=== PATIENT | female | born 1955 | race Caucasian/White ===

== ENCOUNTER 2024-09-25 08:02 | Outpatient (REF) | payer MEDICARE, OTHER, SELFPAY ==
--- OUTSIDE RECORDS SUMMARY | 2024-09-28 08:13 | XMS_ITS | Patient Health Record ---
Author Organization [facility] [place] Address [address] [place] [address] Care Team Providers Care Art Glass Setter Name Role Phone Jeffrey Penny MD Primary Care Provider Brody Agee Unavailable [phone] Allergies Allergen (clinical drug ingredient) Drug/Non Drug [...] A DAY Oral for 90 Active MegaRed [place]-3 Krill Oil 500 MG Orally Active Multi-Vitamin [...] Status Risk Notes Problem Acquired hallux valgus (68091722) Hallux valgus (acquired), left foot (M20.12) Active confirmed Problem Localized, primary osteoarthritis of the ankle and/or foot (279996438) Primary osteoarthrit is, right ankle and foot (M19.071) Active confirmed Problem Localized, primary osteoarthritis of the ankle and/or foot (169871675) Primary osteoarthrit is, left ankle and foot (M19.072) Active confirmed Problem Acquired hallux valgus (24313810) Hallux valgus (acquired), right foot (M20.11) Active [...] Insured Coverage Start Date Coverage End Date [facility] [address] [place] [address] [id number] Puja Desouza Self - patient is the insured [facility] Office of Community Care [address] [address] [place] [address] [phone] [id number] Sammy Desouza Sr Spouse - patient is the spouse of the insured Medical (General) History Medical History History ICD Code Arthritis Back,Hip,and Knee pain High blood pressure Reflux Measles Chicken pox Surgical History Surgery Date(Month/Year) tonsillectomy 1973 polypectomy 1981 hysterectomy 1996 finger surgery, reattached 1998
--- OUTSIDE RECORDS SUMMARY | 2024-09-28 08:13 | XMS_ITS | Data Portability ---
Author Organization [place] [facility] [place] Address [address] [place] [address] Assessment Encounter Date Assessment Date Assessment LastModified [...] with right total hip arthroplasty using the [place] hip replacement system. However, it is possible [...] view 025 07/31/19 25 [email or web address] [facility], [address], [place], [address], 5 14:48:04 XR, knee, 4 or more view 025 07/31/19 25 [email or web address] [facility], [address], [place], [address], 5 14:48:04 Medication Orders None record ed. [...] Time Osteoarthri tis of right hip joint [id number] 07 Active 2024 Yaron Cintron MD [address] [facility] [address], [place], [place], [address] , [place] [facility], P 14:20:45 Problem Notes None recorded. Procedures [...] Name and Address Organization Details Recorded Time 26410 Substance with sulfonami de structure and antibacte rial mechanism of action (substanc e) medicatio n Not available Not available Not available 07/31/2024 76559 8003 SNOMED Nubia Bond [facility], [facility], P 13:57:38 22703 Product containin g penicilli n (product) medicatio n Not available Not available Not available 07/31/2024 89817 8001 SNOMED Nubia Bond [facility], [facility], P 13:57:43 55410 cephalexi n medicatio n Not available Not available Not available 07/31/2024 2231 RxNorm Nubia Bond [facility], [facility], P 14:01:06 98059 Keflex medicatio n Not available Not available Not available 07/31/2024 45779 7 RxNorm Nubia mcdaniel, [place] - [facility], P 5 14:01:15 Medications Name Sig Start [...] propionate 50 mcg/actuati on nasal spray,suspe nsion [place] 1 spray every day by intranasa l [...] Updated DateTime 07/31/2024 152.4 cm 34.4 kg/m2 52474.[address] [place] [facility], 07/31/2024 13:58:02 Social History None recorded. Functional [...] SNOMED-CT Code Diagnosis ICD10 Code Diagnosis Note [id number] MD CLIFFORD Souza [address] [facility] [address] [place] [address] 07/31/2024 13:46:26 07/31/2024 14:25:06 Hip pain 59656395 M25.551 Pain of ri ght knee region 4445206975 65817 M25.561 Osteoarthr itis of right hip joint 3546755037 44259 M16.11 Health Concerns Section Related Observation LastModified by Organization Detai ls LastModified Time None Recorded Concern Status LastModified by Organization Details LastModified Time None Recorded Advance Directives Directive None Recorded Payers Encounter Date Sequence Insurance Name Policy Number Policy Tsang Covered Member ID Tsang Member ID Guarantor Name 07/31/2024 2 DAVID ([facility]) Puja Desouza [id number] Puja Desouza 07/31/2024 1 MEDICARE B-[place]: [facility] [employer] Puja Desouza [id number] Puja Desouza OBGyn Episode No OBEpisode recorded.
== END 2024-09-25 08:03 | disposition home or self-care (01) ==
LOC: HO.HOSX 08:02
PROVIDERS: Visit Provider Physician Assistant
DX: M25.551 Pain in right hip (principal); M17.11 Unilateral primary osteoarthritis, right knee
CPT/HCPCS: 99202

== ENCOUNTER 2024-09-25 10:34 | Outpatient (AMB) | payer MEDICARE, OTHER, SELFPAY ==
--- NOTE | 2024-09-25 11:14 | MHC.OFFVIS ---
Vital Signs 09/25/24 11:21 Height 5 ft Weight 170 lb BMI 33.2 Handedness Right Intake Visit Reasons: New Pt - Right hip pain Intake Note: Puja is a 69 year old female who presents today with a cane as a new patient for a evaluation of her right hip pain. MRI done on 07/04/24 at [place]. About a year and a half ago she slipped on a piece of paper. No hx of Previous Treatment. Patient reports ongoing pain for about 9 months. Her pain is near the glutes and at time her pain moves to her groin. She mentions that her pain is worse when she is sitting, walking and laying down. Patient has tried naproxen with no relief. Allergies cephaeline Allergy (Verified 09/25/24 11:22) Swelling Penicillins Allergy (Verified 09/25/24 11:22) Swelling Sulfa (Sulfonamide Antibiotics) Allergy (Verified 09/25/24 11:22) Swelling [facility] HPI New Pt - Right hip pain: Details: Ms. Desouza is a 69-year-old female who presents the office today for evaluation of right hip pain. She reports that she has had ongoing pain for the past 9 months. She is concerned with her inability to internally and externally rotate. While doing this motion she experiences groin and glute pain and is limited. She has tried and failed naproxen with no relief. She is interested in moving forward with a right total hip arthroplasty. [facility] Social History (Updated 09/25/24 @ 11:25 by Sam Hansen) Alcohol intake: never Patient Tobacco Use Status: Never used Tobacco Current occupational status: retired Current occupation: right hand dominant Review of Systems Const All systems reviewed & are unremarkable except as noted in HPI and below Physical Exam Vital Signs: BMI result Body Mass Index 33.2 Const General: cooperative, healthy appearing and no acute distress Resp Effort & Inspection: normal respiratory effort and able to speak in complete sentences Cardio Rate: regular rate Peripheral pulses: Peripheral pulses 2+ throughout Skin Lesions: no lesions Rashes: no rashes Extrem Other: Right hip: Limited hip range of motion with internal and external rotation which reproduces glute and groin pain. No tenderness to palpation over the greater trochanteric bursa. Able to perform straight leg raise. NVI. Assessment & Plan Assessment & Plan (1) Osteoarthritis of right hip: Code(s): M16.11 - Unilateral primary osteoarthritis, right hip Category: Medical Plan Ms. Desouza is a 69-year-old female who presents the office today for evaluation of right hip pain. She reports that she has had ongoing pain for the past 9 months. She is concerned with her inability to internally and externally rotate. While doing this motion she experiences groin and glute pain and is limited. She has tried and failed naproxen with no relief. She is interested in moving forward with a right total hip arthroplasty. While in the office today, we discussed the role of total hip arthroplasty. She is interested in moving forward with the process. A follow-up appointment will be made with Dr. Rodriguez to meet the patient and discuss in more detail. Our nurse navigator was also available to meet with the patient while in the office today. X-rays of the right hip and pelvis were chronic to the office I the patient on a disc which were uploaded into the PACS syste. The images were reviewed by me, Lu Mercado PA-C, revealed severe right hip osteoarthritis. Orders: Orders XR hip RT min 2V Today M25.559 - Pain in unspecified hip Coding Level of Care Code New Pt Level 4 (57007) Diagnoses Osteoarthritis of right hip M16.11
[2024-09-25 11:21] VITALS: BMI 33.2
--- OUTSIDE RECORDS SUMMARY | 2024-09-25 11:24 | XMS_ITS | Patient Health Record ---
Author Organization [facility] [place] Address [address] [place] [address] Care Team Providers Care Head Of Quality Name Role Phone Jeffrey Penny MD Primary Care Provider Brody Agee Unavailable [phone] Allergies Allergen (clinical drug ingredient) Drug/Non Drug Allergy documented on EMR Reaction Allergy Type Onset Date Status cephalexin Cephalexin rash/body swells Drug Allergy Active sulfa swelling/redness Drug Allergy Active Penicillin rash/body swells Drug Allergy Active Reason For Referral No Information Medications Medication SIG (Take, Route, Frequency, Duration) Notes Start Date End Date Status Klor-Con M20 20 MEQ TAKE 1 TABLET BY ORA L ROUTE 2 TIMES A DAY Oral for 90 Active MegaRed [place]-3 Krill Oil 500 MG Orally Active Multi-Vitamin - 1 tablet Orally Once a day Active Potassium Chloride 20 MEQ 1 packet with food Orally Twice a day Active Protonix 40 MG 1 tablet Orally Once a day Not-Taking Compression Stockings 20-30mm Hg as directed 07/24/2016 Active Pantoprazole Sodium 40 MG TAKE 1 TABLET (40 MG) BY ORAL ROUTE ONCE DAILY FOR 90 DAYS Oral for 90 Active Pravastatin Sodium 40 MG TAKE 1 TABLET ( 40 MG) BY ORAL ROUTE ONCE DAILY FOR 90 DAYS Oral for 90 Active Pravachol 40 MG 1 tablet Orally Once a day Not-Taking Calcium 600-D 600-400 MG-UNIT Orally Active Lisinopril-hydroCHLOROthi azide 20-25 MG TAKE 1 TABLET BY ORAL ROUTE 2 TIMES A DAY Orally Active Social History Tobacco use other than smoking: Question Answer Notes Are you an other tobacco user? No Problems Problem Type SNOMED Code ICD Code Onset Dates Problem Status W/U Status Risk Notes Problem Acquired hallux valgus (96914404) Hallux valgus (acquired), left foot (M20.12) Active confirmed Problem Localized, primary osteoarthritis of the ankle and/or foot (999790229) Primary osteoarthrit is, right ankle and foot (M19.071) Active confirmed Problem Localized, primary osteoarthritis of the ankle and/or foot (603075748) Primary osteoarthrit is, left ankle and foot (M19.072) Active confirmed Problem Acquired hallux valgus (12130413) Hallux valgus (acquired), right foot (M20.11) Active confirmed Plan Of Treatment Pending Test Test Name Order Date X ray : Ankle, left 2V 07/24/2016 X ray : Ankle, right 2V 07/24/2016 X ray : Foot, left 2V 07/24/2016 X ray : Foot, right 2V 07/24/2016 Insurance Providers Payer Name Payer Address Payer Phone Subscriber Number Group Number Insured Name Patient Relationship to Insured Coverage Start Date Coverage End Date [facility] [address] [place] [address] [id number] Puja Desouza Self - patient is the insured [facility] [employer] [address] [address] [place] [address] [id number] Sammy Desouza Sr Spouse - patient is the spouse of the insured Medical (General) History Medical History History ICD Code Arthritis Back,Hip,and Knee pain High blood pressure Reflux Measles Chicken pox Surgical History Surgery Date(Month/Year) tonsillectomy 1973 polypectomy 1981 hysterectomy 1996 finger surgery, reattached 1998
--- OUTSIDE RECORDS SUMMARY | 2024-09-25 11:24 | XMS_ITS | Data Portability ---
Author Organization [place] [facility] A[facility] [place] Address [address] [place] [address] Assessment Encounter Date Assessment Date Assessment LastModified by Organization Details LastModified Time 07/31/2024 07/31/2024 HPI : ?Thank you for the pleasure of requesting a consultation on this patient. Patient comes in complaining of right hip pain. ?This patient is experiencing right hip pain for a period lasting greater than the last three months, which is severe (VAS score greater than or equal to 6 on a 0-10 scale) in intensity and the restriction of function (appropriate for a patient of this age) are intolerable. The pain substantially limits activities of daily living. In particular, walking tolerance and ability to stair climb is reduced. Conservative management such as non-steroidal anti-inflammatory medications available by prescription, physician directed therapy, ice and/or heat and activity modification have been minimally effective or deemed insufficient by the patient for a period lasting greater than 3-6 months in duration. Assistive devices and external support were not deemed by the patient to be helpful in improving their function. The patient is unable to tolerate further physical therapy at this time. Review of systems is negative for rapidly progressive neurological disorder, chest pain, shortness of breath, fevers, chills, or any signs of active or persistent local or systemic infection. Physical Exam : Patient is well nourished, well-developed, in no acute distress, with appropriate mood and affect. The patient is oriented to time, place, and person. Respirations are even and unlabored. Gait evaluation reveals a limp. There is no inguinal adenopathy. Examination of the contralateral hip shows normal range of motion, strength, no tenderness, and intact skin. The affected limb is well-perfused, shows a grossly normal motor and sensory examination. Examination of the hip shows no skin lesions. Hip motion is reduced and causes pain. FADIR is positive and TORRES is positive. Stinchfield test is positive. Right less than left by 1 cm . both hips are stable and muscle strength is normal. Pedal pulses are palpable. Examination of the right knee shows mild medial joint line tenderness. Range of motion is 0 to 120 degrees. Assessment/Plan : She does have some right knee arthritis, but this is not her main symptoms. The patient is an appropriate candidate for consideration of right total hip replacement. An extensive discussion was conducted of the natural history of the disease and the variety of surgical and non-surgical treatment options available to the patient. A risk/benefit analysis was discussed with the patient reviewing the advantages and disadvantages of surgical intervention at this time. A full explanation was given of the nature and the purpose of the procedure and anesthesia, its benefits, possible alternative methods of diagnosis or treatment, the risks involved, the possibility of complications, the foreseeable consequences of the procedure and the possible results of the non-treatment. No guarantee or assurance was made as to the results that may be obtained. Specifically, the risks were identified to include, but are not limited to the following: Infection, phlebitis, pulmonary embolism, , paralysis, dislocation, pain, stiffness, instability, limp, weakness, breakage, leg-length inequality, uncontrolled bleeding, nerve injury, blood vessel injury, pressure sores, anesthetic risks, delayed healing of wound and bone, and wear and loosening. Additional risks of robotic hip replacement were discussed (if used) including but not limited to pin site infection, draining, longer incision, longer OR time, and fracture near the pin sites. Further discussion was undertaken with the patient about the details of surgical preparation, treatment, and postoperative rehabilitation including medical clearance, autotransfusion, the hospital course, and the postoperative rehabilitation involved. As a part of routine preoperative counseling, if the patient is a smoker, the patient recognizes the increased risk of complications in patients who utilize tobacco products. The patient has also been counseled regarding the elevated risk of surgical complications in patients with an elevated BMI. The patient demonstrates understanding of the increased risk in such patients. The patient was encouraged to participate in physical activity and diet modification under the direction of their primary care physician. We will plan on proceeding with right total hip arthroplasty using the [place] hip replacement system. However, it is possible during the preoperative planning process or due to intraoperative findings that a different implant system may be utilized in order to optimize the patient's outcome. We had a discussion regarding implant and bearing options. We had a detailed discussion of the advantages and limitations of the specific implant designs, materials and bearing surfaces. All questions were answered to the patient's satisfaction, and the patient was asked to call the office with any further concerns. All in all, I feel that this patient is a good candidate for surgical reconstruction. Patient will be discussing with her family when and if she would like to proceed with total hip replacement. If she does she will call for scheduling. She is also welcome to come in for a follow-up visit if that is her preference. [email or web address] Not available 07/31/2024 14:21:54 Plan of Treatment Reminders Order Date Submit Date Provider Last Modified By Organization Details Last Modified Time Details Appointments None record ed. Lab None record ed. Referral None record ed. Procedures None record ed. Surgeries None record ed. Imaging XR, hip, unilat eral, 2 or 3 view 025 07/31/19 25 [email or web address] [facility], [address], [place], [address], 5 14:48:04 XR, knee, 4 or more view 025 07/31/19 25 [email or web address] [facility], [address], [place], [address], 5 14:48:04 Medication Orders None record ed. Patient TargetsNo targets recorded. Patient InstructionsNo instructions recorded. Reason for Referral None Reported. Results Created Date Observation Date Name Description Value Unit Range Abnormal Flag Note LastModifiedBy Organization Detail LastModifiedTime 07/31/19 25 imagi ng/di agnos tic resul t No observ ation record ed. [email or web address] Not Available 07/31 15:20:54 Result Notes None recorded. Problems Name Problem SNOMED Code Status Onset Date Resolution Date Notes Provider Name and Address Organization Details Recorded Time Osteoarthri tis of right hip joint 7472651473262 07 Active 2024 Yaron Cintron MD [address] [facility] [address], [place], [place], [address] , [place] [facility], P 14:20:45 Problem Notes None recorded. Procedures Surgical History None recorded. Imaging Results Imaging Date Name Status LastModified by Organiz ation Details LastModified Time 07/31/2024 imaging/diag nostic result completed [email or web address] Information not available 07/31/2024 15:20:54 Procedure Notes None recorded. Medical Equipment None Reported. Allergies Allergen ID Allergen Name Allergen Category Reaction Reaction Severity Criticality Documentation Date Start Date Code Code System Note Provider Name and Address Organization Details Recorded Time 08359 Substance with sulfonami de structure and antibacte rial mechanism of action (substanc e) medicatio n Not available Not available Not available 07/31/2024 14552 8003 SNOMED Nubia Bond [facility], [facility] P 13:57:38 84639 Product containin g penicilli n (product) medicatio n Not available Not available Not available 07/31/2024 21663 8001 SNOMED Nubia Bond [facility], [facility], P 13:57:43 11774 cephalexi n medicatio n Not available Not available Not available 07/31/2024 2231 RxNorm Nubia Bond [facility], [facility], P 14:01:06 28355 Keflex medicatio n Not available Not available Not available 07/31/2024 76821 7 RxNorm Nubia [email or web address], [place] - [facility], P 5 14:01:15 Medications Name Sig Start Date Stop Date Status Note LastModified by Organization Details LastModified Time lisinopril 20 mg-hydrochl orothiazide 12.5 mg tablet Take 1 tablet every day by oral route. active Not Available Not Available No t Available pravastatin 40 mg tablet Take 1 tablet every day by oral route. active Not Available Not Available No t Available prednisone 20 mg tablet TAKE 1 TABLET BY MOUTH TWICE A DAY FOR 7 DAYS 07/31 completed Not Available Not Available Not Available lorazepam 0.5 mg tablet Take 2 tablets 3 times a day by oral route. active Not Available Not Available No t Available pantoprazol e 40 mg tablet,ascencion yed release Take 1 tablet every day by oral route. active Not Available Not Available No t Available furosemide 20 mg tablet Take 1 tablet every day by oral route. active Not Available Not Available No t Available clobetasol 0.05 % scalp solution APPLY TO THE AFFECTED SCALP AREA BY TOPICAL ROUTE 2 TIMES PER DAY IN THE MORNING AND EVENING active Not Available Not Available No t Available fluticasone propionate 50 mcg/actuati on nasal spray,suspe nsion [place] 1 spray every day by intranasa l route. active Not Available Not Available No t Available escitalopra m 10 mg tablet Take 1 tablet every day by oral route. active Not Available Not Available No t Available potassium chloride ER 20 mEq tablet,exte nded release Take 1 tablet every day by oral route. active Not Available Not Available No t Available Vitals Date Recorded Body height Body mass index (BMI) Body weight Provider Name and Address Organization Details Last Updated DateTime 07/31/2024 152.4 cm 34.4 kg/m2 16838.[address] [place] [facility], 07/31/2024 13:58:02 Social History None recorded. Functional Status None recorded. Mental Status None recorded. Family History Relationship Description Onset Age of this Age Resolved Age Notes LastModified by Organization Details LastModified Time Mother Arthritis Not availab le 07/31/2024 15:20:01 Mother Hypertensive disorder [email or web address] Not available 2024 15:21:38 Sister Arthritis Not availab le 07/31/2024 15:20:01 Father History of cancer of unknown primary site [email or web address] Not available 15:20:36 Father Heart disease [email or web address] Not available 2024 15:21:11 Medical History Condition Response Reflux/GERD Y Hypertension Y Gynecological HistoryNo gynecological history recorded. Obstetrics History GPAL:G 0 P 0 0 0 0 Past Encounters Encounter ID Performer Location Encounter Start Date Encounter Closed Date Diagnosis/Indication Diagnosis SNOMED-CT Code Diagnosis ICD10 Code Diagnosis Note [id number] MD CLIFFORD Souza [address] [facility] [address] [place] [address] 07/31/2024 13:46:26 07/31/2024 14:25:06 Hip pain 08979141 M25.551 Pain of ri ght knee region 0266238386 59439 M25.561 Osteoarthr itis of right hip joint 6221462602 26952 M16.11 Health Concerns Section Related Observation LastModified by Organization Detai ls LastModified Time None Recorded Concern Status LastModified by Organization Details LastModified Time None Recorded Advance Directives Directive None Recorded Payers Encounter Date Sequence Insurance Name Policy Number Policy Tsang Covered Member ID Tsang Member ID Guarantor Name 07/31/2024 2 DAVID ([facility] Puja Desouza [id number] Puja Desouza 07/31/2024 1 MEDICARE B-AL: [facility] [employer] Puja Desouza [id number] Puja Desouza OBGyn Episode No OBEpisode recorded.
--- OUTSIDE RECORDS SUMMARY | 2024-09-25 11:24 | XMS_ITS ---
Author Name [facility] Organization Unknown History of Medication Use Medication Directions Dispensed Refills Start Date End Date Stat us lisinopril 20 mg-hydrochlorothiaz jacinto 12.5 mg tablet Take 1 tablet every day by oral route. active clobetasol 0.05 % scalp solution APPLY TO THE AFFECTED SCALP AREA BY TOPICAL ROUTE 2 TIMES PER DAY IN THE MORNING AND EVENING active furosemide 20 mg tablet Take 1 tablet every day by oral route. active pravastatin 40 mg tablet Take 1 tablet every day by oral route. active prednisone 20 mg tablet TAKE 1 TABLET BY MOUTH TWICE A DAY FOR 7 DAYS 07/31/2024 completed pantoprazole 40 mg tablet,delayed release Take 1 tablet every day by oral route. active fluticasone propionate 50 mcg/actuation nasal spray,suspension [place] 1 spray every day by intranasal route. active lorazepam 0.5 mg tablet Take 2 tablets 3 times a day by oral route. active potassium chloride ER 20 mEq tablet,extended release Take 1 tablet every day by oral route. active escitalopram 10 mg tablet Take 1 tablet every day by oral route. active Allergies Allergen Reaction Severity Comment Documented Date Source Statu s SULFA (SULFONAMIDE ANTIBIOTICS) ENS_AONECT KEFLEX ENS_AONECT CEPHALEXIN ENS_AONECT PENICILLINS ENS_AONECT Problems Problem Status Onset Date Problem Type Date of Resoluti on Source Osteoarthritis of right hip joint active 2024-07-31 ProblemAct ENS_AONECT Encounters Encounter Type Encounter Reason Primary Diagnosis Location Date [facility]ulatory [facility] 09/09/2024 [facility] 08/03/2024 [facility] 07/31/2024 [facility] 07/31/2024 [facility] 07/31/2024 [facility] 07/31/2024 [facility] 07/20/2024 [facility] 07/20/2024 [facility] 07/20/2024
== END 2024-09-25 11:49 | disposition home or self-care (01) ==
LOC: HO.HOS 10:35
PROVIDERS: PCP Internal Medicine; Visit Provider Physician Assistant
DX: M16.11 Unilateral primary osteoarthritis, right hip (principal); Z96.642 Presence of left artificial hip joint
CPT/HCPCS: 99203

== ENCOUNTER 2024-10-26 11:18 | Outpatient (AMB) | payer MEDICARE, OTHER, SELFPAY ==
--- NOTE | 2024-10-26 11:38 | A.OFFVIS_ITS ---
Intake Visit Reasons: OV - Discuss Right AYSHA 12/08/24 Intake Note: Puja is a 69 year old female who presents today to discuss upcoming Right AYSHA, currently she is booked for this procedure on 12/08/24. Allergies cephaeline Allergy (Verified 10/26/24 11:38) Swelling Penicillins Allergy (Verified 10/26/24 11:38) Swelling Sulfa (Sulfonamide Antibiotics) Allergy (Verified 10/26/24 11:38) Swelling HPI HPI OV - Discuss Right AYSHA 12/08/24: Details: Puja is a 69 year old female who presents today to discuss upcoming Right AYSHA, currently she is booked for this procedure on 12/08/24. She describes difficulty ambulating. She uses a cane and states the quality of her life is severely diminished. She can not ambulate for even 5 minutes without the use of a cane. She has difficulty getting dressed and engaging in activities of daily living without severe difficulty. She has been booked for right hip replacement. [facility] Social History (Updated 09/25/24 @ 11:25 by Sam Hansen) Alcohol intake: never Patient Tobacco Use Status: Never used Tobacco Current occupational status: retired Current occupation: right hand dominant Physical Exam Extrem Other: On exam she has almost no rotation of the right hip. She has an antalgic gait. She has a 2+ dorsalis pedis pulse she is firing her EHL/TA/ gastroc. Results Reviewed Results Reviewed: I personally reviewed relevant radiographs. Severe right hip OA Assessment & Plan Assessment & Plan (1) Osteoarthritis of right hip: Code(s): M16.11 - Unilateral primary osteoarthritis, right hip Category: Medical Plan: This is a very pleasant 69-year-old woman with severe right hip osteoarthritis. She has been using an assistive device and feels he can not get through her day without severe difficulty. I discussed treatment options and I agree with a right hip replacement. I had discussed her in the past with my physician orthodontist assistant. In meeting her I explained to her the procedure in his view of the risks, benefits and alternatives including to, but not limited to, the risk of infection/dislocation/fracture/need for further surgery as well as medical complications such as blood clots, pulmonary emboli, pneumonia, urinary tract infection. She expressed understanding and we will proceed forward accordingly. Coding Level of Care Code Est Pt Level 4 (48625) Diagnoses Osteoarthritis of right hip M16.11
--- OUTSIDE RECORDS SUMMARY | 2024-10-26 12:08 | XMS_ITS | Data Portability ---
Author Organization [place] [facility] [place] Address [address] [place] [address] Assessment Encounter Date Assessment Date Assessment LastModified [...] with right total hip arthroplasty using the [place] hip replacement system. However, it is possible [...] view 025 07/31/19 25 [email or web address] [facility], [address], [place], [address], 5 14:48:04 XR, knee, 4 or more view 025 07/31/19 25 [email or web address] [facility], [address], [place], [address], 5 14:48:04 Medication Orders None record ed. [...] Time Osteoarthri tis of right hip joint [id number] 07 Active 2024 Yaron Cintron MD [address] [facility] [address], [place], [place], [address] , [place] [facility], P 14:20:45 Problem Notes None recorded. Procedures [...] Name and Address Organization Details Recorded Time 79260 Substance with sulfonami de structure and antibacte rial mechanism of action (substanc e) medicatio n Not available Not available Not available 07/31/2024 92790 8003 SNOMED Nubia Bond [facility], [facility], P 13:57:38 73676 Product containin g penicilli n (product) medicatio n Not available Not available Not available 07/31/2024 49661 8001 SNOMED Nubia Bond [facility], [facility], P 13:57:43 94903 cephalexi n medicatio n Not available Not available Not available 07/31/2024 2231 RxNorm Nubia Bond [facility], [facility], P 14:01:06 21886 Keflex medicatio n Not available Not available Not available 07/31/2024 16534 7 RxNorm Nubia mcdaniel, [place] - [facility], P 5 14:01:15 Medications Name Sig Start [...] propionate 50 mcg/actuati on nasal spray,suspe nsion [place] 1 spray every day by intranasa l [...] Updated DateTime 07/31/2024 152.4 cm 34.4 kg/m2 33319.[address] [facility], 07/31/2024 13:58:02 Social History None recorded. Functional [...] SNOMED-CT Code Diagnosis ICD10 Code Diagnosis Note [id number] MD CLIFFORD Souza [address] [facility] [address] [place] [address] 07/31/2024 13:46:26 07/31/2024 14:25:06 Pain of hip region 35467652 M25.551 Pain of ri ght knee region 0050361156 34588 M25.561 Osteoarthr itis of right hip joint 6934845734 82665 M16.11 Health Concerns Section Related Observation LastModified by Organization Detai ls LastModified Time None Recorded Concern Status LastModified by Organization Details LastModified Time None Recorded Advance Directives Directive None Recorded Payers Encounter Date Sequence Insurance Name Policy Number Policy Tsang Covered Member ID Tsang Member ID Guarantor Name 07/31/2024 2 DAVID () Puja Desouza [id number] Puja Desouza 07/31/2024 1 MEDICARE B-[place]: [facility] [employer] Puja Desouza [id number] Puja Desouza OBGyn Episode No OBEpisode recorded.
--- OUTSIDE RECORDS SUMMARY | 2024-10-26 12:08 | XMS_ITS | Patient Health Record ---
Author Organization [facility] [place] Address [address] [facility] [place] [address] Care Team Providers Care Java Xml Developer Name Role Phone Jeffrey Penny MD Primary Care Provider Brody Agee Unavailable [phone] Allergies Allergen (clinical drug ingredient) Drug/Non Drug [...] A DAY Oral for 90 Active MegaRed [place]-3 Krill Oil 500 MG Orally Active Multi-Vitamin [...] Status Risk Notes Problem Acquired hallux valgus (83260429) Hallux valgus (acquired), left foot (M20.12) Active confirmed Problem Localized, primary osteoarthritis of the ankle and/or foot (264885532) Primary osteoarthrit is, right ankle and foot (M19.071) Active confirmed Problem Localized, primary osteoarthritis of the ankle and/or foot (651930528) Primary osteoarthrit is, left ankle and foot (M19.072) Active confirmed Problem Acquired hallux valgus (01941396) Hallux valgus (acquired), right foot (M20.11) Active [...] Insured Coverage Start Date Coverage End Date [facility] [address] [place] [address] [id number] Puja Desouza Self - patient is the insured [facility] Office of Community Care [address] [address] [place] [address] [id number] Sammy Desouza Sr Spouse - patient is the spouse of the insured Medical (General) History Medical History History ICD Code Arthritis Back,Hip,and Knee pain High blood pressure Reflux Measles Chicken pox Surgical History Surgery Date(Month/Year) tonsillectomy 1973 polypectomy 1981 hysterectomy 1996 finger surgery, reattached 1998
== END 2024-10-26 12:10 | disposition home or self-care (01) ==
LOC: HO.HOS 11:18
PROVIDERS: PCP Internal Medicine; Visit Provider Orthopaedic Surgery
DX: M16.11 Unilateral primary osteoarthritis, right hip (principal)
CPT/HCPCS: 99214

== ENCOUNTER → 2024-10-26 11:18 | Outpatient (BNVA) | payer MEDICARE, OTHER, SELFPAY | PROVIDERS: PCP Internal Medicine; Visit Provider Orthopaedic Surgery | DX: M16.11 Unilateral primary osteoarthritis, right hip (principal) | CPT/HCPCS: 99212 ==

== ENCOUNTER → 2024-11-06 08:37 | Outpatient (BNVA) | payer MEDICARE, OTHER, SELFPAY | PROVIDERS: PCP Internal Medicine | DX: Z01.818 Encounter for other preprocedural examination (principal) ==

== ENCOUNTER → 2024-11-10 13:22 | Outpatient (BNV) | payer MEDICARE, OTHER, SELFPAY | PROVIDERS: PCP Internal Medicine; Visit Provider Internal Medicine Cardiovascular Disease | DX: Z01.818 Encounter for other preprocedural examination (principal) | CPT/HCPCS: 93010 ==

== ENCOUNTER 2024-12-03 09:17 | Outpatient (REF) | payer MEDICARE, OTHER, SELFPAY ==
--- NOTE | ~2024-12-03 | XR_ITS ---
CLINICAL HISTORY: M25.551 - Pain in right hip --- Additional Notes or Special Instructions: pre op 3 view, pelvis and right hip Comparison: None provided Findings: Severe degenerative change of the right femoral-acetabular joint with complete joint space loss and subchondral sclerosis. Marginal osteophytes are present. Bzlv-xq-zpopxwds degenerative change of the left hip. Asymmetry of the pubic symphysis with slight cephalad displacement of the left pubic bone and degenerative changes of the symphysis. The soft tissues are unremarkable. IMPRESSION: No acute findings. Severe chronic changes of the right hip. Chronic appearing changes of the pubic symphysis as detailed. This document has been electronically signed by: Claudio Guardado MD on 12/04/2024 10:23:03
== END 2024-12-03 09:18 | disposition home or self-care (01) ==
LOC: HO.HOSX 09:17
PROVIDERS: Visit Provider Physician Assistant
DX: M25.551 Pain in right hip (principal); M16.11 Unilateral primary osteoarthritis, right hip
CPT/HCPCS: 73502; 99212

== ENCOUNTER 2024-12-03 09:46 | Outpatient (AMB) | payer MEDICARE, OTHER, SELFPAY ==
--- NOTE | 2024-12-03 09:49 | MHC.OFFVIS ---
Vital Signs 12/03/24 09:50 Height 5 ft Weight 170 lb BMI 33.2 Intake Visit Reasons: Pre-Op: R AYSHA w/NE 12/08/24 Intake Note: Puja is a 69 year old female who presents today for a pre operative visit to discuss her scheduled right AYSHA w/NE DOS: 12/08/24. Pain management agreement was given to patient to be reviewed and signed. Allergies cephalexin Allergy (Intermediate, Verified 12/03/24 09:50) Swelling Penicillins Allergy (Verified 12/03/24 09:50) Swelling Sulfa (Sulfonamide Antibiotics) Allergy (Verified 12/03/24 09:50) Swelling HPI Comments Details: Ms Desouza presents to the office today for preop visit. She is scheduled for right total hip arthroplasty with Dr. Rodriguez. She continues to have ongoing pain and difficulty with ambulation in the right hip, which is affecting her quality of life; therefore, she has elected to move forward with surgery. Denies h/o smoking, cancer or DVT Lives at home and plans to DC home post op She states the sulfa allergy is due to a topical cream she took years ago which made her arm swell: Aspirin she has tolerated in the past. She has never tried celebrex. She does have her walker. [facility] Medical History (Updated 11/10/24 @ 12:20 by Richelle Isaac RN) Arthritis Back pain GERD (gastroesophageal reflux disease) Anxiety Depression Elevated cholesterol Murmur HTN (hypertension) Surgical History Hx of total hysterectomy Hx of tonsillectomy History of hand surgery H/O colonoscopy Social History (Updated 09/25/24 @ 11:25 by Sam Hansen) Are you a primary director of career services to a significant other at home: No Do you presently have visiting nurse or other home services: No Alcohol intake: never Patient Tobacco Use Status: Never used Tobacco Current occupational status: retired Current occupation: right hand dominant Review of Systems Const All systems reviewed & are unremarkable except as noted in HPI and below Physical Exam Vital Signs: BMI result Body Mass Index 33.2 Const General: cooperative, healthy appearing, comfortable, no acute distress, well developed and alert Orientation/consciousness: patient oriented x3 HEENT Head: Yes normal to inspection, Yes normocephalic and Yes atraumatic Eyes General: appearance normal, both eyes and all related structures Neck Neck: Yes normal visual inspection and Yes no lymphadenopathy Resp Effort & Inspection: normal respiratory effort and able to speak in complete sentences Cardio Rate: regular rate Peripheral pulses: Peripheral pulses 2+ throughout GI Inspection: Yes normal to inspection Palpation (GI): Soft to palpation Skin General skin exam: no rashes or lesions noted Neuro General: patient oriented x3 Extrem Other: Right hip skin intact, no open wounds or abraisons. On exam she has almost no rotation of the right hip. She has an antalgic gait. She has a 2+ dorsalis pedis pulse she is firing her EHL/TA/ gastroc. Psych Appearance: grossly normal Mental Status: mental status grossly normal Assessment & Plan Assessment & Plan (1) Osteoarthritis of right hip: Code(s): M16.11 - Unilateral primary osteoarthritis, right hip Category: Medical Plan: I discussed in detail the procedure and what to expect pre and post operatively. We discussed the risks, benefits and alternatives to the surgery as well as the rehabilitation course. The risks; which include, but are not limited to infection, bleeding, nerve injury, ongoing pain, swelling, and stiffness, perioperative risk of injury to bones and soft tissues, and blood clots. I?ve answered all questions and with their understanding they have consented to move forward with Right total hip arthroplasty with Dr. Rodriguez She plans to attend out patient PT closer to home in [place]-she was given the order and advised to call to make an appt to begin after 12/24/24 She plans to DC home with VNA post op She has taken ASA in the past without issues. She agreed to try the ASA for dvt ppx, along with celebrex. Orders: Orders XR hip RT min 2V Today M25.551 - Pain in right hip Type and Screen Today Z01.818 - Encounter for other preprocedural examination PT Evaluation and Treatment Today Z96.641 - Presence of right artificial hip joint Coding Level of Care Code Est Pt Level 3 (63201) Complex EM visit Add On G2211 Diagnoses Osteoarthritis of right hip M16.11
[2024-12-03 09:50] VITALS: BMI 33.2
--- OUTSIDE RECORDS SUMMARY | 2024-12-03 10:47 | XMS_ITS | Data Portability ---
Author Organization [place] [facility] [place] Address [address] [place] [address] Assessment Encounter Date Assessment Date Assessment LastModified by Organization Details LastModified Time 07/31/2024 07/31/2024 HPI : Thank you for the pleasure of requesting a consultation on this patient. Patient comes in complaining of right hip pain. This patient is experiencing right hip pain for [...] with right total hip arthroplasty using the [place] hip replacement system. However, it is possible [...] view 025 07/31/19 25 [email or web address] [facility], [address], [place], [address], 5 14:48:04 XR, knee, 4 or more view 025 07/31/19 25 [email or web address] [facility], [address], [place], [address], 5 14:48:04 Medication Orders None record ed. [...] Time Osteoarthri tis of right hip joint 3694035651527 07 Active 2024 Yaron Cintron MD [address] [facility],[address], [place], [place], [address], [place] [facility], P 5 14:20:45 Problem Notes None recorded. Medical Equipment None Reported. Allergies Allergen ID Allergen Name Allergen Category Reaction Reaction Severity Criticality Documentation Date Start Date Code Code System Note Provider Name and Address Organization Details Recorded Time 98187 Substance with sulfonami de structure and antibacte rial mechanism of action (substanc e) medicatio n Not available Not available Not available 07/31/2024 48212 8003 SNOMED Nubia mcdaniel, [facility], P 13:57:38 48172 Product containin g penicilli n (product) medicatio n Not available Not available Not available 07/31/2024 15787 8001 SNOMED Nubia mcdaniel, [facility], P 13:57:43 73212 cephalexi n medicatio n Not available Not available Not available 07/31/2024 2231 RxNorm Nubia mcdaniel, [facility], P 14:01:06 07053 Keflex medicatio n Not available Not available Not available 07/31/2024 97001 7 RxNorm Nubia mcdaniel, [facility], P 5 14:01:15 Medications Name Sig Start [...] propionate 50 mcg/actuati on nasal spray,suspe nsion [place] 1 spray every day by intranasa l [...] Updated DateTime 07/31/2024 152.4 cm 34.4 kg/m2 04668.[address] - [facility], P 07/31/2024 13:58:02 Social History None recorded. Functional [...] SNOMED-CT Code Diagnosis ICD10 Code Diagnosis Note [id number] MD CLIFFORD Souza [address] [place] [address] 07/31/2024 13:46:26 07/31/2024 14:25:06 Pain of hip region 65851101 M25.551 Pain of ri ght knee region 5027856238 08627 M25.561 Osteoarthr itis of right hip joint 1610774537 81629 M16.11 Health Concerns Section Related Observation LastModified by Organization Detai ls LastModified Time None Recorded Concern Status LastModified by Organization Details LastModified Time None Recorded Advance Directives Directive None Recorded Payers Insurance Date Sequence Insurance Name Policy Number Policy Tsang Covered Member ID Tsang Member ID Guarantor Name 07/20/2024 1 MEDICARE B-[place]: [facility] Puja Desouza [id number] Puja Desouza 07/20/2024 2 () Puja Desouza [id number] Puja Desouza OBGyn Episode No OBEpisode recorded.
== END 2024-12-03 13:19 | disposition home or self-care (01) ==
LOC: HO.HOS 09:47
PROVIDERS: PCP Internal Medicine; Visit Provider Physician Assistant
DX: M16.11 Unilateral primary osteoarthritis, right hip (principal)
CPT/HCPCS: 99024

== ENCOUNTER → 2024-12-03 10:01 | Outpatient (BNV) | payer MEDICARE, OTHER, SELFPAY | PROVIDERS: Visit Provider Radiology Vascular & Interventional Radiology | DX: M16.11 Unilateral primary osteoarthritis, right hip (principal) | CPT/HCPCS: 73502 ==

== ENCOUNTER → 2024-12-08 08:05 | Outpatient (BNV) | payer MEDICARE, OTHER, SELFPAY | PROVIDERS: PCP Internal Medicine; Visit Provider Radiology Diagnostic Radiology | DX: Z96.641 Presence of right artificial hip joint (principal) | CPT/HCPCS: 72170 ==

== ENCOUNTER 2024-12-08 08:40 | Day surgery (SDC) | payer MEDICARE, OTHER, SELFPAY ==
--- OUTSIDE RECORDS SUMMARY | 2024-11-05 14:26 | XMS_ITS | Data Portability ---
Author Organization [place] [facility] [place] Address [address] [place] [address] Assessment Encounter Date Assessment Date Assessment LastModified [...] with right total hip arthroplasty using the [place] hip replacement system. However, it is possible [...] view 025 07/31/19 25 [email or web address] [facility], [address], [place], [address], 5 14:48:04 XR, knee, 4 or more view 025 07/31/19 25 [email or web address] [facility], [address], [place], [address], 5 14:48:04 Medication Orders None record ed. [...] Time Osteoarthri tis of right hip joint 8787199430020 07 Active 2024 Yaron Cintron MD [address] [facility] [address], [place], [place], [address] , [place] [facility], P 14:20:45 Problem Notes None recorded. Procedures [...] Name and Address Organization Details Recorded Time 55745 Substance with sulfonami de structure and antibacte rial mechanism of action (substanc e) medicatio n Not available Not available Not available 07/31/2024 26358 8003 SNOMED Nubia Bond [facility], [facility], P 13:57:38 82631 Product containin g penicilli n (product) medicatio n Not available Not available Not available 07/31/2024 84172 8001 SNOMED Nubia Bond [facility], [facility], P 13:57:43 96119 cephalexi n medicatio n Not available Not available Not available 07/31/2024 2231 RxNorm Nubia Bond [facility], [facility], P 14:01:06 81700 Keflex medicatio n Not available Not available Not available 07/31/2024 41240 7 RxNorm Nubia mcdaniel, [place] - [facility], P 5 14:01:15 Medications Name Sig Start [...] propionate 50 mcg/actuati on nasal spray,suspe nsion [place] 1 spray every day by intranasa l [...] Updated DateTime 07/31/2024 152.4 cm 34.4 kg/m2 [address]609.[address] [facility], 07/31/2024 13:58:02 Social History None recorded. Functional [...] SNOMED-CT Code Diagnosis ICD10 Code Diagnosis Note [id number] MD CLIFFORD Souza [address] [facility] [address] [facility] [place] [place] [address] 07/31/2024 13:46:26 07/31/2024 14:25:06 Pain of hip region 42761549 M25.551 Pain of ri ght knee region 0126514560 34911 M25.561 Osteoarthr itis of right hip joint 6592344599 27213 M16.11 Health Concerns Section Related Observation LastModified by Organization Detai ls LastModified Time None Recorded Concern Status LastModified by Organization Details LastModified Time None Recorded Advance Directives Directive None Recorded Payers Encounter Date Sequence Insurance Name Policy Number Policy Tsang Covered Member ID Tsang Member ID Guarantor Name 07/31/2024 2 DAVID () Puja Desouza [id number] Puja Desouza 07/31/2024 1 MEDICARE B-[place]: [facility] [employer] Puja Desouza [id number] Puja Desouza OBGyn Episode No OBEpisode recorded.
--- NOTE | 2024-11-10 | ECG_ITS ---
Test Reason : preop Blood Pressure : */* mmHG Vent. Rate : 83 BPM Atrial Rate : 83 BPM P-R Int : 176 ms QRS Dur : 92 ms QT Int : 384 ms P-R-T Axes : 76 18 68 degrees QTcB Int : 451 ms Normal sinus rhythm Normal ECG No previous ECGs available Referred By: Shereen Sloan Electronically Signed By: VIKTORIYA ECKERT MD
[2024-11-10 12:33] VITALS: BP 132/74; PULSE 89; RESP 16; O2SAT 99; BMI 33.0
[2024-11-10 14:47] LABS: Mean Corpuscular HGB Conc 32.5 g/dl (31.0-35.0); Mean Corpuscular Hemoglobin 26.3 pg (27.0-33.0); Mean Corpuscular Volume 80.8 fL (80.0-98.0); Mean Platelet Volume 9.7 fL (9.4-12.3); Platelet Count 292 X10*3/uL (160-400); Red Blood Count 4.95 X10*6/uL (4.20-5.50); White Blood Count 7.9 X10*3/uL (4.8-10.8)
[2024-11-10 14:53] LABS: MRSA Nasal PCR NEGATIVE (Negative); SA Nasal PCR NEGATIVE (Negative)
[2024-11-10 15:21] LABS: Anion Gap 15 (12-20); Blood Urea Nitrogen 35 mg/dL (9-16); Calcium 9.8 mg/dL (8.4-10.2); Carbon Dioxide 26 mmol/L (22-29); Chloride 105 mmol/L (96-108); Creatinine Clr Calc Pharmacy 86.3; Estimated Glomerular Filt Rate > 60; Glucose Random 84 mg/dL (60-115); Potassium 3.5 mmol/L (3.3-5.1); Sodium 142 mmol/L (135-145)
[2024-12-08] VITALS (9 sets, daily range): BP systolic 117–149; BP diastolic 58–85; PULSE 71–90; RESP 11–18; TEMP 36–36.6; O2SAT 96–100; BMI 32.8
--- NOTE | ~2024-12-08 | XR_ITS ---
EXAMINATION: XR PELVIS 1-2 VIEWS HISTORY: s/p Right AYSHA COMPARISON: Comparison is made with the prior examination dated 12/03/2024. FINDINGS: A single AP view of the pelvis is submitted. The patient is status post right total hip arthroplasty. The orthopedic elements are in anatomic alignment on this single AP view. There is no acute fracture or dislocation. Again seen is widening of the symphysis pubis. There is mild narrowing of the left hip joint. XR/XR pelvis 1-2V IMPRESSION: Status post right total hip arthroplasty. Electronically signed by: Kyle Field MD 12/08/2024 12:37 PM EDT
[2024-12-08] MEDS: oxyCODONE HCl ER 10 MG TAB.ER.12H PO ×3 (08:55→22:03)
[2024-12-08] MEDS: Lactated Ringers 1,000 ML 100 ML IVCONT ×3 (09:21→23:31)
--- NOTE | 2024-12-08 09:23 | HO.ANESPROP2 ---
Documented by User: Shereen Sloan NP 12/07/24 08:45 HPI - Anesthesia Eval Consult details Narrative: 69yo F for Right Hip Total Replacement, 12/08/24 No recent illness No CP/SOB with limited activity d/t hip pain - occassional walker vs cane GERD: ppi controls Murmur: dx'd 1980s, benign PMFSH Active Problems Active Problems: All Active Problems Osteoarthritis of right hip (Acute) Past Medical History Medical History (Updated 11/10/24 @ 12:20 by Richelle Isaac RN) Arthritis Back pain GERD (gastroesophageal reflux disease) Anxiety Depression Elevated cholesterol Murmur HTN (hypertension) Family History Family history of problems with anesthesia: No Surgical History Surgical History Hx of total hysterectomy Hx of tonsillectomy History of hand surgery H/O colonoscopy History of Problems with Anesthesia: No Social History Social History (Updated 09/25/24 @ 11:25 by Sam Hansen) Are you a primary day care supervisor to a significant other at home: No Do you presently have visiting nurse or other home services: No Alcohol intake: never Patient Tobacco Use Status: Never used Tobacco Use of substances other than those prescribed or required for medical reasons: No Have you been hit, kicked, punched, or otherwise hurt by someone within the past year? If so, by whom?: No Are you DNR?: No Advance Directives: No Advance Directives Information Provided: Yes Advance Directives on File: No Patient : No : No Poor oral hygiene: No Current occupational status: retired Current occupation: right hand dominant Meds Allergies Allergy/AdvReac Type Severity Reaction Status Date / Time cephalexin Allergy Intermediate Swelling Verified 12/03/24 09:50 Penicillins Allergy Swelling Verified 12/03/24 09:50 Sulfa (Sulfonamide Allergy Swelling Verified 12/03/24 09:50 Antibiotics) Home Medications ?Medication ?Instructions ?Recorded ?Confirmed ?Last Taken ?Type escitalopram oxalate 10 mg tablet 5 mg PO DAILY 11/05/24 11/10/24 Unknown History furosemide 20 mg tablet 20 mg PO 2XW 11/05/24 11/10/24 Unknown History lisinopril 20 1 tab PO BID 11/05/24 11/10/24 Unknown History mg-hydrochlorothiazide 12.5 mg tablet lorazepam 0.5 mg tablet 0.5 mg PO BID PRN Anxiety 11/05/24 11/10/24 Unknown History pantoprazole 40 mg tablet,delayed 40 mg PO QPM 11/05/24 11/10/24 Unknown History release potassium chloride 20 mEq 20 meq PO BID 11/05/24 11/10/24 Unknown History tablet,extended release pravastatin 40 mg tablet 40 mg PO QPM 11/05/24 11/10/24 Unknown History naproxen sodium 220 mg tablet 440 mg PO BID 11/06/24 11/10/24 Unknown History (Flanax (naproxen)) calcium 600 mg (as 1 tab PO QPM 11/10/24 11/10/24 Unknown History carbonate)-vitamin D3 5 mcg (200 unit) tablet krill 1 cap PO DAILY 11/10/24 11/10/24 Unknown History kse-bg-7-shf-gaj-xbfoezlpiplzr 500 mg-115 mg-30 mg-64 mg capsule loratadine 10 mg tablet 10 mg PO DAILY 11/10/24 11/10/24 Unknown History multivitamin 1 tab PO QPM 11/10/24 11/10/24 Unknown History multivitamin with calcium carb and 1 tab PO DAILY 11/10/24 11/10/24 Unknown History iron tablet Exam Height,Weight and Vital Signs: Height 5 ft 0.5 in Weight 78.018 kg Last Vital Signs Pulse 89 11/10/24 12:33 Resp 16 11/10/24 12:33 BP 132/74 11/10/24 12:33 Pulse Ox 99 11/10/24 12:33 O2 Del Method Room Air 11/10/24 12:33 Pertinent Lab Results Pertinent Lab Results: Lab Results 11/10/24 11/10/24 12/03/24 Range/Units 12:45 13:17 11:27 WBC 7.9 (4.8-10.8) X10*3/uL RBC 4.95 (4.20-5.50) X10*6/uL Hgb 13.0 (12.0-16.0) g/dl Hct 40.0 (37.0-47.0) % MCV 80.8 (80.0-98.0) fL MCH 26.3 L (27.0-33.0) pg MCHC 32.5 (31.0-35.0) g/dl RDW 16.0 (11.0-16.0) % Plt Count 292 (160-400) X10*3/uL MPV 9.7 (9.4-12.3) fL Absolute Nucleated RBC 0.000 (0.0-0.012) X10*3/uL Nucleated RBC % (auto) 0.0 (0.0-0.2) /100WBC Sodium 142 (135-145) mmol/L Potassium 3.5 (3.3-5.1) mmol/L Chloride 105 (96-108) mmol/L Carbon Dioxide 26 (22-29) mmol/L Anion Gap 15 (12-20) BUN 35 H (9-16) mg/dL Creatinine 0.56 (0.5-1.4) mg/dL Estim Creat Clear Calc 86.3 Estimated GFR > 60 Random Glucose 84 (60-115) mg/dL Calcium 9.8 (8.4-10.2) mg/dL Nasal Screen MRSA (PCR) NEGATIVE (Negative) Nasal S. aureus Screen NEGATIVE (Negative) Nasal MRSA/S.aureus Interp SEE NOTE Blood Type O Negative Antibody Screen NEGATIVE Narrative Narrative: EKG 10/2024 Vent. Rate : 83 BPM Atrial Rate : 83 BPM P-R Int : 176 ms QRS Dur : 92 ms QT Int : 384 ms P-R-T Axes : 76 18 68 degrees QTcB Int : 451 ms Normal sinus rhythm Normal ECG No previous ECGs available Airway Mallampati Class: I TM Dist: >3cm Neck ROM: Full (arthritis) Loose/Missing/Broken Teeth: Yes (molars extracted) Heart: RRR Lungs: CTAB Assessment and Plan Assessment Anesthesia Assessment: Anesthesia Plan Discussed and PAT Visit Final Anesthetic Review Family History of Problems with Anesthesia: No History of Problems with Anesthesia: No Documented by User: Chanel Ho DO 12/08/24 09:25 [facility] Past Medical History Medical History (Updated 11/10/24 @ 12:20 by Richelle Isaac RN) Arthritis Back pain GERD (gastroesophageal reflux disease) Anxiety Depression Elevated cholesterol Murmur HTN (hypertension) Family History Family history of problems with anesthesia: No Surgical History Surgical History Hx of total hysterectomy Hx of tonsillectomy History of hand surgery H/O colonoscopy History of Problems with Anesthesia: No Social History Social History (Updated 09/25/24 @ 11:25 by Sam Hansen) Are you a primary day care supervisor to a significant other at home: No Do you presently have visiting nurse or other home services: No Alcohol intake: never Patient Tobacco Use Status: Never used Tobacco Use of substances other than those prescribed or required for medical reasons: No Have you been hit, kicked, punched, or otherwise hurt by someone within the past year? If so, by whom?: No Are you DNR?: No Advance Directives: No Advance Directives Information Provided: Yes Advance Directives on File: No Patient : No : No Poor oral hygiene: No Current occupational status: retired Current occupation: right hand dominant Meds Allergies Allergy/AdvReac Type Severity Reaction Status Date / Time cephalexin Allergy Intermediate Swelling Verified 12/03/24 09:50 Penicillins Allergy Swelling Verified 12/03/24 09:50 Sulfa (Sulfonamide Allergy Swelling Verified 12/03/24 09:50 Antibiotics) Home Medications ?Medication ?Instructions ?Recorded ?Confirmed ?Last Taken ?Type escitalopram oxalate 10 mg tablet 5 mg PO DAILY 11/05/24 11/10/24 Unknown History furosemide 20 mg tablet 20 mg PO 2XW 11/05/24 11/10/24 Unknown History lisinopril 20 1 tab PO BID 11/05/24 11/10/24 Unknown History mg-hydrochlorothiazide 12.5 mg tablet lorazepam 0.5 mg tablet 0.5 mg PO BID PRN Anxiety 11/05/24 11/10/24 Unknown History pantoprazole 40 mg tablet,delayed 40 mg PO QPM 11/05/24 11/10/24 Unknown History release potassium chloride 20 mEq 20 meq PO BID 11/05/24 11/10/24 Unknown History tablet,extended release pravastatin 40 mg tablet 40 mg PO QPM 11/05/24 11/10/24 Unknown History naproxen sodium 220 mg tablet 440 mg PO BID 11/06/24 11/10/24 Unknown History (Flanax (naproxen)) calcium 600 mg (as 1 tab PO QPM 11/10/24 11/10/24 Unknown History carbonate)-vitamin D3 5 mcg (200 unit) tablet krill 1 cap PO DAILY 11/10/24 11/10/24 Unknown History nlm-uz-5-ykl-dfl-fopipoabgwhdo 500 mg-115 mg-30 mg-64 mg capsule loratadine 10 mg tablet 10 mg PO DAILY 11/10/24 11/10/24 Unknown History multivitamin 1 tab PO QPM 11/10/24 11/10/24 Unknown History multivitamin with calcium carb and 1 tab PO DAILY 11/10/24 11/10/24 Unknown History iron tablet Exam Exam Date and Time: 12/08/24 0920 Height,Weight and Vital Signs: Vital Signs Pulse Rate 89 11/10/24 12:33 Respiratory Rate 16 11/10/24 12:33 Blood Pressure 132/74 11/10/24 12:33 Pulse Oximetry 99 11/10/24 12:33 Oxygen Delivery Method Room Air 11/10/24 12:33 Temperature 98 F 12/08/24 09:20 Pulse Rate 90 12/08/24 09:20 Respiratory Rate 16 12/08/24 09:20 Blood Pressure 129/83 12/08/24 09:20 Pulse Oximetry 97 12/08/24 09:20 Oxygen Delivery Method Room Air 12/08/24 09:20 Height 5 ft 0.5 in Weight 78.018 kg Last Vital Signs Pulse 89 11/10/24 12:33 Resp 16 11/10/24 12:33 BP 132/74 11/10/24 12:33 Pulse Ox 99 11/10/24 12:33 O2 Del Method Room Air 11/10/24 12:33 Airway Mallampati Class: I TM Dist: >3cm Neck ROM: Full Loose/Missing/Broken Teeth: Yes (molars extracted) Heart: S1S2 Assessment and Plan Assessment Anesthesia Assessment: Anesthesia Plan Discussed and Chart Reviewed Final Anesthetic Review Family History of Problems with Anesthesia: No History of Problems with Anesthesia: No NPO: Yes ASA Class: II Final Preanesthetic Review: No Changes in Pt Med Stat, Meds/Allgs Chart Reviewed, Consent Obtained/Reviewed and Anes Risks/Benef Reviewed Patient Risk: Low Procedure Risk: Intermediate Anesthetic Plan Anesthetic Plan: GA and Agree w/ Assess. and Plan Disposition: Standard PACU
--- NOTE | 2024-12-08 09:55 | MHC.SHP ---
Pre-Procedural Eval Section A - 24 Hr Update-Section A only Date of Service: 12/08/24 The patient is an INPATIENT: No Changes since office visit: No Cold of Flu in the past 2 weeks, No New Medical Problems, No Changes in Medication and No Patient answered all questions The patient has been examined within 24 hours of the surgical procedure. The History & Physical has been completed within 30 days and I have reviewed it.: Yes Section B - Complete if H&P > 30 days Chief Complaint: Unilateral primary osteoarthritis, right hip Allergies: Allergies Allergy/AdvReac Type Severity Reaction Status Date / Time cephalexin Allergy Intermediate Swelling Verified 12/03/24 09:50 Penicillins Allergy Swelling Verified 12/03/24 09:50 Sulfa (Sulfonamide Allergy Swelling Verified 12/03/24 09:50 Antibiotics) Plan I have reviewed the history and physical and performed a pertinent physical examination on my patient. No changes have occurred unless specified. Time Spent With Patient Time: Total time managing care of this patient today ____ minutes.
[2024-12-08] MEDS: Clindamycin Phosphate/D5W 600 MG/50 ML PIGGYBACK 100 MG IV ×2 (10:05→17:16)
[2024-12-08] MEDS: Acetaminophen 1,000 MG/100 ML PIGGYBACK 400 MG IV (10:25)
--- NOTE | 2024-12-08 11:45 | PM.OP ---
Brief Operative Note Date of Service: 12/08/24 Pre-op diagnosis: Right hip OA Post-op diagnosis: same Procedure: Right AYSHA Implants: [place] Trident2 48/10; Accolade2 #3 132 wityh +4 32 CoCr Surgeon: Jace Rodriguez MD Anesthesia: GETA and local Was an Traffic Inspector used for this Procedure?: Yes Traffic Inspector: Lu Mercado Estimated blood loss (mL): 200 IV fluids (mL): 1,000 Pathology: other Condition: stable Disposition: PACU
--- NOTE | 2024-12-08 11:50 | P.OP_ITS ---
Operative Note Operative Note Date of Service: 12/08/24 Narrative: Date of Service: 12/08/24 Pre-op diagnosis: Right hip OA Post-op diagnosis: same Procedure: Right AYSHA Implants: [place] Trident2 48/10; Accolade2 #3 132 wityh +4 32 CoCr Surgeon: Jace Rodriguez MD Anesthesia: GETA and local Was an Drilling Field Specialist used for this Procedure?: Yes Drilling Field Specialist: Lu Mercado Estimated blood loss (mL): 200 IV fluids (mL): 1,000 Pathology: other Condition: stable Disposition: PACU Procedure in detail: Patient was brought into the operating room and placed in the right lateral decubitus position. All bony prominences were well padded and the limb was prepped and draped in standard sterile fashion. A time-out was called to identify proper site procedure proper surgeon IV antibiotics and 1 g of tranexamic acid were administered. I began by making a curvilinear incision over the posterolateral aspect of the greater trochanter. Dissection was taken down to the tensor fascia which was incised in line with the incision and a Charnley retractor was placed. Cautery was used to maintain hemostasis. The hip was internally rotated and the external rotators were identified. The vessels were cauterized and a full-thickness capsular/external rotator layer was developed starting just proximal to the piriformis. This layer was tagged and a dull Hohmann retractor was placed underneath the neck in the hip was dislocated. A neck cut was made 1 cm proximal to the lesser trochanter and the head and neck were removed and measured 42mm on the back table. The head was deformed and eburnated. I placed my anterior and posterior acetabular retractors to proctect the soft tissues and expose the acetabulum. I then removed the labrum and cauterized the fovea. I started with a 42 reamer and medialized to the inner table. I sequentially reamed up to a size 48 and impacted a 48mm cup at 45 degrees of inclination and 25 degrees of version. I then placed a 10 deg posterior lipped liner and turned my attention to the femur. I identified the piriformis insertion and used this as a starting point for my cruzie cutter. The medius tendon was protected with a Hibs retractor. A Charnley awl was inserted in the canal and a curved curette used to remove the lateral bone. I irrigated copiously. I then sequentially broached in the patient's natural version to a size 3 and placed my trial implants. I used a #3/132/+4 based on my pre-operative template. I removed all instrumentation and copiously irrigated. I placed my final femoral implant and again took the hip through range of motion and was satisfied with the stability and length. The final +4 implant was impacted in place and the hip reduced. I then irrigated copiously and placed 1 g of local tranexamic acid. I performed a capsular closure with 2.0 fiberwire, Venu's fascia with 0 Vicryl, subcuticular with 2-0 Vicryl and the skin with gonzález. Patient was placed into a sterile dressing. Patient was extubated brought to the recovery room in stable condition. There were no known complications.
--- NOTE | 2024-12-08 12:58 | HO.PM.IMCN ---
History of Present Illness Data of Consult Service Date: 12/08/24 Primary Care Provider: Rosemarie Daigle MD [facility] Reason for consult: Medical management 69-year-old female with a past medical history of hypertension, anxiety and depression, hyperlipidemia and GERD who has undergone a total right hip arthroplasty with Dr. Rodriguez today. On exam she is drowsy, easily arousable, answers questions appropriately. Her vitals were stable. She is saturating 100% on room air. Dressing to right hip clean dry and intact, she has no nausea or vomiting. Reports she has no pain. Positive CMS to right leg. Patient reports no history of CHF, she takes Lasix twice weekly for fluid retention. Review of Systems Review of Systems: Denies any shortness of breath, chest pain, dizziness, lightheadedness, abdominal pain or discomfort, nausea vomiting or diarrhea PMFSH Medical History (Updated 12/08/24 @ 13:38 by Lilo Uriostegui DNP) Arthritis Back pain GERD (gastroesophageal reflux disease) Anxiety Depression Elevated cholesterol Murmur HTN (hypertension) Surgical History Hx of total hysterectomy Hx of tonsillectomy History of hand surgery H/O colonoscopy Social History (Updated 09/25/24 @ 11:25 by Sam Hansen) Are you a primary coronary care unit nurse to a significant other at home: No Do you presently have visiting nurse or other home services: No Alcohol intake: never Patient Tobacco Use Status: Never used Tobacco Use of substances other than those prescribed or required for medical reasons: No Have you been hit, kicked, punched, or otherwise hurt by someone within the past year? If so, by whom?: No Are you DNR?: No Advance Directives: No Advance Directives Information Provided: Yes Advance Directives on File: No Patient : No : No Poor oral hygiene: No Current occupational status: retired Current occupation: right hand dominant Meds Allergies Allergy/AdvReac Type Severity Reaction Status Date / Time cephalexin Allergy Intermediate Swelling Verified 12/03/24 09:50 Penicillins Allergy Swelling Verified 12/03/24 09:50 Sulfa (Sulfonamide Allergy Swelling Verified 12/03/24 09:50 Antibiotics) Active Medications: Current Medications Acetaminophen (Acetaminophen 325 Mg Tablet) 650 mg PO Q6H PRN PRN Reason: Pain, Mild 1-3,fever,headache Aspirin (Aspirin 325 Mg Tablet) 325 mg PO BID [facility] Calcium Carbonate/Cholecalciferol (Calcium + Vitamin D 250 Mg Tablet) 250 mg PO BEDTIME [facility] Escitalopram Oxalate (Escitalopram Oxalate 5 Mg Tablet) 5 mg PO DAILY [facility] Furosemide (Furosemide 20 Mg Tablet) 20 mg PO TuFr [facility]; Protocol Haloperidol Lactate (Haloperidol Lactate 5 Mg/Ml Vial) 0.5 mg IVPUSH ONCE PRN PRN Reason: intractable nausea Stop: 12/08/24 15:21 Hydromorphone HCl (Hydromorphone Hcl 0.5 Mg/0.5 Ml Syringe) 0.5 mg IVPUSH Q5M PRN PRN Reason: Pain, Moderate to Severe (Pain Scale 4-10) Stop: 12/08/24 15:21 Hydromorphone HCl (Hydromorphone Hcl 0.5 Mg/0.5 Ml Syringe) 0.25 mg IVPUSH Q4H PRN; Protocol PRN Reason: Pain, Severe (Pain Scale 7-10) Lactated Ringer's (Lr) 1,000 mls @ 100 mls/hr IVCONT .Q10H [facility] Last Admin: 12/08/24 09:21 Dose: 100 mls/hr Lactated Ringer's (Lr) 1,000 mls @ 100 mls/hr IVCONT .Q10H [facility] Clindamycin Phosphate (Cleocin) 600 mg in 50 mls @ 100 mls/hr IV POSTOP@1800 RHIANNA Stop: 12/08/24 18:29 Loratadine (Loratadine 10 Mg Tablet) 10 mg PO DAILY [facility] Lorazepam (Lorazepam 0.5 Mg Tablet) 0.5 mg PO BID PRN PRN Reason: Anxiety Magnesium Hydroxide (Milk Of Magnesia 30 Ml Oral.Susp) 30 ml PO DAILY PRN PRN Reason: Constipation Melatonin (Melatonin 3 Mg Tablet) 6 mg PO BEDTIME PRN PRN Reason: Insomnia Multivitamins/Vitamin C (Multivitamin Tablet) 1 tab PO BEDTIME [facility] Naloxone HCl (Naloxone Hcl 0.4 Mg/Ml Vial) 0.04 mg IVPUSH Q5M PRN PRN Reason: Excessive sedation or RR < 8 Non-Formulary Medication (Lisinopril-Hydrochlorothiazide) 1 tab PO BID [facility] Ondansetron HCl (Ondansetron Hcl 4 Mg/2 Ml Vial) 4 mg IVPUSH Q8H PRN PRN Reason: Nausea and Vomiting Oxycodone HCl (Oxycodone Hcl Immed Release 5 Mg Tablet) 5 mg PO Q4H PRN PRN Reason: Pain, Moderate(Pain Scale 4-6) Oxycodone HCl (Oxycodone Hcl Er 10 Mg Tab.Er.12h) 10 mg PO BID RHIANNA Pantoprazole Sodium (Pantoprazole Sodium 20 Mg Tablet.Dr) 40 mg PO BEDTIME RHIANNA Potassium Chloride (Potassium Chloride Er 20 Meq Tab.Er.Prt) 20 meq PO BID RHIANNA Pravastatin Sodium (Pravastatin Sodium 40 Mg Tablet) 40 mg PO BEDTIME RHIANNA Sodium Chloride (0.9 % Sodium Chloride Flush 3 Ml Syringe) 3 ml IVFLUSH QSHIFT [facility] Home Medications ?Medication ?Instructions ?Recorded ?Confirmed ?Last Taken ?Type escitalopram oxalate 10 mg tablet 5 mg PO DAILY 11/05/24 11/10/24 Unknown History furosemide 20 mg tablet 20 mg PO 2XW 11/05/24 11/10/24 Unknown History lisinopril 20 1 tab PO BID 11/05/24 11/10/24 Unknown History mg-hydrochlorothiazide 12.5 mg tablet lorazepam 0.5 mg tablet 0.5 mg PO BID PRN Anxiety 11/05/24 11/10/24 Unknown History pantoprazole 40 mg tablet,delayed 40 mg PO QPM 11/05/24 11/10/24 Unknown History release potassium chloride 20 mEq 20 meq PO BID 11/05/24 11/10/24 Unknown History tablet,extended release pravastatin 40 mg tablet 40 mg PO QPM 11/05/24 11/10/24 Unknown History naproxen sodium 220 mg tablet 440 mg PO BID 11/06/24 11/10/24 Unknown History (Flanax (naproxen)) calcium 600 mg (as 1 tab PO QPM 11/10/24 11/10/24 Unknown History carbonate)-vitamin D3 5 mcg (200 unit) tablet krill 1 cap PO DAILY 11/10/24 11/10/24 Unknown History osf-zu-4-ikj-tbf-ofqygengdvbht 500 mg-115 mg-30 mg-64 mg capsule loratadine 10 mg tablet 10 mg PO DAILY 11/10/24 11/10/24 Unknown History multivitamin 1 tab PO QPM 11/10/24 11/10/24 Unknown History multivitamin with calcium carb and 1 tab PO DAILY 11/10/24 11/10/24 Unknown History iron tablet Physical Exam Vital Signs and Narrative: Vital Signs: Last Vital Signs Temp 96.8 F 12/08/24 12:43 Pulse 71 12/08/24 12:43 Resp 16 12/08/24 12:43 BP 143/71 H 12/08/24 12:43 Pulse Ox 100 12/08/24 12:43 O2 Del Method Room Air 12/08/24 12:43 O2 Flow Rate 9 12/08/24 11:45 BMI result Body Mass Index 32.8 CONST: Alert and oriented, in NAD. Drowsy. Well appearing. HEENT: Normocephalic, atraumatic, MMM, Eyes clear, Neck supple RESP: Lungs clear, RRR even and regular HEART:,RRR, S1, S2. no edema. Strong PP. GI:Abdomen Soft NT, ND. + BS times four :Deferred SKIN: Warm dry and intact, no visible lesions or rashes NEURO:CN II-XII Intact bilaterally, Sensation intact. Speech clear. + D/P flexion PSYCH: Normal affect Results Labs 11/10/24 13:17 11/10/24 13:17 Imaging Radiologist's Impressions: Impressions Pelvis X-Ray 12/08/24 12:10 IMPRESSION: Status post right total hip arthroplasty. Electronically signed by: Kyle Field MD 12/08/2024 12:37 PM EDT RP Assessment and Plan (1) HTN (hypertension): Status: Acute Plan 69-year-old female with a past medical history of hypertension, anxiety and depression, hyperlipidemia and GERD who underwent an elective total right hip arthroplasty with Dr. Rodriguez today. Patient is seen for medical management. Right total hip arthroplasty Performed by Dr. Rodriguez today. Her vitals were stable Plan per Orthopedics Hypertension Continue lisinopril/HCTZ/K+ replacement Lasix twice weekly Blood pressure is stable. Follow labs GERD Continue pantoprazole HLD Continue pravasatin Thank you for allowing me to participate in the care of this patient. Signing off at this time. Please reconsult of any acute concerns or issues arise
[2024-12-08] MEDS: Loratadine 10 MG TABLET PO (13:50)
[2024-12-08] MEDS: Aspirin 325 MG TABLET PO ×2 (13:51→20:09)
[2024-12-08] MEDS: Escitalopram Oxalate 5 MG TABLET PO (13:52)
[2024-12-08] MEDS: Potassium Chloride ER 20 MEQ TAB.ER.PRT PO ×2 (13:52→20:10)
[2024-12-08] MEDS: 0.9 % Sodium Chloride Flush 3 ML SYRINGE IVFLUSH (13:56)
--- NOTE | 2024-12-08 14:06 | PHA.MEDREC ---
Pharmacy Consult ? Medication Reconciliation Pharmacy has completed the medication reconciliation. Used list from patient
--- NOTE | 2024-12-08 19:18 | PM.DS ---
DS: Providers Provider Date of Service: 12/09/24 Date of discharge: 12/09/24 Primary care physician: Rosemarie Daigle MD Consults: 12/08/24 12:35 Consult to Hospitalist Routine Comment: Consulting Provider: [facility] Reason For Exam: Routine medical management DS: Diagnosis Discharge Diagnosis (1) HTN (hypertension): Status: Acute DS: Summary Hospital Course Hospital Course: The patient underwent a successful right total hip arthroplasty, they were transferred to PACU and then to the floor to recover. During their stay, their vitals were stable, afebrile at 97.3. Labs were unremarkable, H/H 10.1/32.4. POD 1 they were started on Aspirin 325mg po bid for DVT ppx, they also received Physical Therapy services. Prior to discharge, their dressing was clean dry and intact, and the plan was to be discharged home with VNA services. Time Attestation Discharge Coordination Time (in mins): 30 Quality: Safe Use of Opioids Does Pt have an Active Cancer Diagnosis on the Problem List?: No Quality: Stroke Does the patient have a stroke diagnosis?: No Physical Exam Vital Signs: Vital Signs: Last Vital Signs Temp 97.9 F 12/08/24 19:07 Pulse 87 12/08/24 19:07 Resp 18 12/08/24 19:07 BP 125/58 L 12/08/24 19:07 Pulse Ox 98 12/08/24 19:07 O2 Del Method Room Air 12/08/24 19:07 O2 Flow Rate 9 12/08/24 11:45 BMI result Body Mass Index 32.8 Const: General: cooperative, healthy appearing and no acute distress Resp: Effort & Inspection: normal respiratory effort and able to speak in complete sentences Cardio: Rate: regular rate Peripheral pulses: Peripheral pulses 2+ throughout GI: Palpation (GI): Soft to palpation Skin: Lesions: no lesions Rashes: no rashes Extrem: Other: right hip dressing is c/d/i. Able to dorsi/plantar flex. Calf is supple and nontender. Sensation intact. Pedal pulse intact. DS: Data Data Completed and Pending Pending studies at discharge: Pending at discharge 12/08/24 10:44 Surgical [PTH] Routine Discharge Plan Discharge Patient Disposition: Home Health Service Referrals: Juliana Glover PA-C [Physician Dairy Feed Sales Consultant, Orthopedics] - 12/24/24 2:00 pm Discharge Medications: New acetaminophen 325 mg Tablet 650 mg PO Q6H PRN (Reason: Pain, Mild 1-3,Fever,Headache) 30 Days Qty: 240 0RF aspirin 325 mg Tablet 325 mg PO BID 42 Days Qty: 84 0RF oxycodone 5 mg Tablet 5 mg PO Q4H PRN (Reason: Pain, Moderate(Pain Scale 4-6)) 7 Days Qty: 42 0RF Rx Instructions: Partial Fill upon patient request. Continued lisinopril-hydrochlorothiazide 20-12.5 mg Tablet 1 tab PO BID pravastatin 40 mg Tablet 40 mg PO QPM lorazepam 0.5 mg Tablet 0.5 mg PO BID PRN (Reason: Anxiety) pantoprazole 40 mg Tablet,Delayed Release (Dr/Ec) 40 mg PO QPM furosemide 20 mg Tablet 20 mg PO 2XW Patient Comments: patient takes every Saturday and escitalopram oxalate 10 mg Tablet 5 mg PO DAILY potassium chloride 20 mEq Tablet Extended Release 20 meq PO BID loratadine 10 mg Tablet 10 mg PO DAILY multivitamin Tablet 1 tab PO QPM calcium carbonate-vitamin D3 600 mg-5 mcg (200 unit) Tablet 1 tab PO QPM multivitamin-calcium carb-iron Tablet 1 tab PO DAILY [id number] 222-185-58-64 mg Capsule 1 cap PO DAILY (DME) walker [facility] See Rx Instructions .ROUTE .MEDSUPPLY Qty: 1 0RF Rx Instructions: Folding front wheeled walker naproxen sodium [Flanax (naproxen)] 220 mg tablet 440 mg PO BID Discharge Orders: Discharge Order (Routine); Ordered 12/09/24 Ordered By: Lu Mercado Diet: Advance to usual diet Activity on Discharge: Use cane or walker Activity Restrictions/Additional Instructions: Physical Therapy for total hip arthroplasty: posterior precautions, gait training, ROM, strength Limit stair climbing No showering, no tub bath-keep dressing clean, dry and intact No driving x6 weeks Continue Aspirin tabs x 6 weeks Follow up with [facility] in 2 weeks Print Language: Faroese
--- NOTE | 2024-12-08 19:19 | P.F2F_ITS ---
Service Date Service Date: 12/08/24 Encounter Date of encounter: 12/09/24 Reasons for Services Signs and symptoms assessed: s/p RTHA Pt. is considered homebound due to recent surgery. Unable to drive, poor balance, poor gait mechanics. Reason for physical therapy: home safety and mobility, therapeutic exercises, restore joint function, gait/transfer training and ADL training Reason for occupational therapy: home safety and mobility, therapeutic exercises, restore joint function, gait/transfer training and ADL training Homebound: Leaving the home is medically contraindicated at this time without the asist of a device and/or another person due th the listed conditions above and below. Reason homebound: unsteady gait / fall risk, leg weakness, pain with ambulation, poor balance / fall risk and unable to drive Certification: Based on the above findings, I certify that this patient is confined to the home and needs intermittent correction care, physical therapy and/or speech therapy, or continues to need occupational therapy. The patient is under my care, and I have initiated the establishment of the plan of care. The patient will be followed by a physician who will periodically review the plan of care. Time Spent With Patient Time: Total time managing care of this patient today ____ minutes.
[2024-12-08] MEDS: Pravastatin Sodium 40 MG TABLET PO (20:09)
[2024-12-08] MEDS: Pantoprazole Sodium 20 MG TABLET.DR 40 MG PO (20:10)
[2024-12-08] MEDS: hydroCHLOROthiazide 12.5 MG TABLET PO (20:10)
[2024-12-08] MEDS: LORazepam 0.5 MG TABLET PO (20:10)
[2024-12-08] MEDS: Calcium + Vitamin D 250 MG TABLET PO (20:10)
[2024-12-08] MEDS: lisinopriL 20 MG TABLET PO (20:10)
[2024-12-08] MEDS: oxyCODONE HCl Immed Release 5 MG TABLET PO (23:45)
[2024-12-08] MEDS: Acetaminophen 325 MG TABLET 650 MG PO (23:46)
[2024-12-09 03:30] VITALS: BP 145/65; PULSE 98; RESP 16; TEMP 36.3; O2SAT 98
[2024-12-09] MEDS: oxyCODONE HCl Immed Release 5 MG TABLET PO (05:16)
[2024-12-09 07:06] LABS: MANUAL DIFF FLAG NO
[2024-12-09 07:10] VITALS: BP 124/59; PULSE 99; RESP 18; TEMP 37.3; O2SAT 99
[2024-12-09 07:14] LABS: Basophils Percent Auto 0.2 % (0-2); Eosinophils Percent Auto 0.2 % (0-4); Hematocrit 32.4 % (37.0-47.0); Hemoglobin 10.1 g/dl (12.0-16.0); Imm Gran Abs Auto 0.05 X10*3/uL (0.00-0.03); Imm Gran Pct Auto 0.6 % (0.0-0.4); Lymphocytes Absolute Auto 1.7 X10*3/uL (1.2-4.9); Lymphocytes Percent Auto 18.8 % (20-40); Mean Corpuscular HGB Conc 31.2 g/dl (31.0-35.0); Mean Corpuscular Volume 83.3 fL (80.0-98.0); Mean Platelet Volume 9.8 fL (9.4-12.3); Monocytes Absolute Auto 0.9 X10*3/uL (0.1-1.2); Monocytes Percent Auto 9.5 % (2-11); Neutrophils Absolute Auto 6.4 x10*3/uL (2.0-8.3); Neutrophils Percent Auto 70.7 % (45-73); Platelet Count 249 X10*3/uL (160-400); Red Blood Count 3.89 X10*6/uL (4.20-5.50); Red Cell Distribution Width 15.9 % (11.0-16.0); White Blood Count 9.1 X10*3/uL (4.8-10.8)
[2024-12-09] MEDS: Acetaminophen 325 MG TABLET 650 MG PO (07:19)
[2024-12-09 07:36] LABS: Anion Gap 10 (12-20); Blood Urea Nitrogen 13 mg/dL (9-16); Calcium 8.8 mg/dL (8.4-10.2); Carbon Dioxide 28 mmol/L (22-29); Chloride 106 mmol/L (96-108); Estimated Glomerular Filt Rate > 60; Glucose Fasting 94 mg/dL (60-99); Potassium 3.9 mmol/L (3.3-5.1); Sodium 140 mmol/L (135-145)
[2024-12-09] MEDS: oxyCODONE HCl ER 10 MG TAB.ER.12H PO (08:41)
[2024-12-09] MEDS: Loratadine 10 MG TABLET PO (08:42)
[2024-12-09] MEDS: Aspirin 325 MG TABLET PO (08:42)
[2024-12-09] MEDS: Escitalopram Oxalate 5 MG TABLET PO (08:42)
[2024-12-09] MEDS: Potassium Chloride ER 20 MEQ TAB.ER.PRT PO (08:42)
[2024-12-09] MEDS: lisinopriL 20 MG TABLET PO (08:42)
[2024-12-09] MEDS: hydroCHLOROthiazide 12.5 MG TABLET PO (08:42)
--- NOTE | 2024-12-09 09:01 | MHC.CM.PN ---
Patient s/p Rt AYSHA lives with family Independent with all functional mobility. [facility] referred by Nurse Navigator. HCP on file. DP home [facility] family transport. Patient will start out patient therapy 12/21/24, once she is cleared by the Surgeon.
--- NOTE | 2024-12-09 09:11 | HO.POSTANES ---
Post Anesthesia Evaluation Post Anesthesia Evaluation Date of Service: 12/09/24 Vital Signs: Vital Signs Temp Pulse Resp BP Pulse Ox O2 Del Method 12/09/24 07:10 99.1 F 99 18 124/59 L 99 Room Air 12/09/24 03:30 97.3 F 98 16 145/65 H 98 Room Air Anesthesia: General Mental Status: Awake Pain Control: Satisfactory Nausea/Vomiting: None Hydration: Adequate Anesthesia-Related Issues: No Anes. Related Issues
== END 2024-12-09 11:24 | disposition home health service (06) ==
LOC: HO.SSS 08:41 → HO.S3 11:55
PROVIDERS: Nurse Practitioner; Physician Assistant; PCP Internal Medicine; Visit Provider Orthopaedic Surgery
PROC: (CPT 27130; principal; 2024-12-08 13:00)
DX: M16.11 Unilateral primary osteoarthritis, right hip (principal); M25.551 Pain in right hip; R26.2 Difficulty in walking, not elsewhere classified; M54.9 Dorsalgia, unspecified; I10 Essential (primary) hypertension; E78.00 Pure hypercholesterolemia, unspecified; R01.1 Cardiac murmur, unspecified; F32.A Depression, unspecified; F41.9 Anxiety disorder, unspecified; Z79.1 Long term (current) use of non-steroidal anti-inflammatories (NSAID); Z79.899 Other long term (current) drug therapy; Z99.89 Dependence on other enabling machines and devices; Z88.0 Allergy status to penicillin; Z88.1 Allergy status to other antibiotic agents; Z88.2 Allergy status to sulfonamides; Z98.890 Other specified postprocedural states
CPT/HCPCS: 27130; 36415; 72170; 80048; 85025; 85027; 86850; 86900; 86901; 87640; 87641; 88304; 88311; 93005; 97161; 97165; C1776; J0131; J0736; J1100; J1171; J2003; J2405; J2704; J2795; J3010; J7120

== ENCOUNTER → 2024-12-08 08:40 | Outpatient (BNV) | payer MEDICARE, OTHER, SELFPAY | PROVIDERS: PCP Internal Medicine; Visit Provider Orthopaedic Surgery | DX: Z47.1 Aftercare following joint replacement surgery (principal); Z96.641 Presence of right artificial hip joint | CPT/HCPCS: 27130; 99024; G0180 ==

== ENCOUNTER → 2024-12-08 08:40 | Outpatient (BNV) | payer MEDICARE, OTHER, SELFPAY | PROVIDERS: PCP Internal Medicine; Visit Provider Nurse Practitioner Family | DX: I10 Essential (primary) hypertension (principal) | CPT/HCPCS: 99222 ==

== ENCOUNTER 2024-12-24 13:41 | Outpatient (AMB) | payer MEDICARE, OTHER, SELFPAY ==
--- OUTSIDE RECORDS SUMMARY | 2024-12-24 13:45 | XMS_ITS | Patient Health Record ---
Author [facility] Address [address] [place] [address] Care Team Providers Care Hotel Receptionist Name Role Phone Jeffrey Penny MD Primary Care Provider Brody Agee Unavailable [phone] Allergies Allergen (clinical drug ingredient) Drug/Non Drug [...] ORA L ROUTE 2 TIMES A DAY Oral; Duration: 90 Active MegaRed [place]-3 Krill Oil 500 MG Orally Active Multi-Vitamin - 1 tablet Orally Once a day Active Potassium Chloride 20 MEQ 1 packet with food Orally Twice a day Active Protonix 40 MG 1 tablet Orally Once a day Not-Taking Compression Stockings 20-30mm Hg as directed 07/24/2016 Active Pantoprazole Sodium 40 MG TAKE 1 TABLET (40 MG) BY ORAL ROUTE ONCE DAILY FOR 90 DAYS Oral; Duration: 90 Active Pravastatin Sodium 40 MG TAKE 1 TABLET ( 40 MG) BY ORAL ROUTE ONCE DAILY FOR 90 DAYS Oral; Duration: 90 Active Pravachol 40 MG 1 tablet [...] Status Risk Notes Problem Acquired hallux valgus (34637833) Hallux valgus (acquired), left foot (M20.12) Active confirmed Problem Localized, primary osteoarthritis of the ankle and/or foot (671750653) Primary osteoarthrit is, right ankle and foot (M19.071) Active confirmed Problem Primary osteoarthrit is, left ankle and foot (M19.072) Active confirmed Problem Acquired hallux valgus (44768621) Hallux valgus (acquired), right foot (M20.11) Active [...] Insured Coverage Start Date Coverage End Date [facility] [address] [place] [address] [id number] Puja Desouza Self - patient is the insured [facility] Claims [facility] Office of [facility] [address] [address] [place] [address] [id number] Sammy Desouza Sr Spouse - patient is the spouse of the insured Medical (General) History Medical History History ICD Code Arthritis Back,Hip,and Knee pain High blood pressure Reflux Measles Chicken pox Surgical History Surgery Date(Month/Year) tonsillectomy 1972 polypectomy 1981 hysterectomy 1996 finger surgery, reattached 1998
--- NOTE | 2024-12-24 14:02 | MHC.OFFVIS ---
Intake Visit Reasons: 2WKPO: R AYSHA w/NE 12/08/24 Intake Note: Puja is a 69 year old female who presents today for her first post operative visit about 2 weeks s/p R AYSHA NE 12/08/24. Patient states no numbness or tingling, she is feeling good no pain to report. Patient uses walker to help with mobility. Allergies cephalexin Allergy (Intermediate, Verified 12/24/24 14:04) Swelling Penicillins Allergy (Verified 12/24/24 14:04) Swelling Sulfa (Sulfonamide Antibiotics) Allergy (Verified 12/24/24 14:04) Swelling Medication List - Last Reconciled 12/24/24 by Juliana Glover PA-C acetaminophen 650 mg (2 x 325 mg) PO Q6H PRN 30 days aspirin 325 mg PO BID 42 days calcium carbonate-vitamin D3 600 mg-5 mcg (200 unit) 1 tab PO QPM escitalopram oxalate 5 mg PO DAILY furosemide 20 mg PO 2XW [id number]-ocpnh-[id number]-kri-lls-[id number] [id number] mg 1 cap PO DAILY lisinopril-hydrochlorothiazide 20-12.5 mg 1 tab PO BID loratadine 10 mg PO DAILY lorazepam 0.5 mg PO BID PRN multivitamin 1 tab PO QPM multivitamin-calcium carb-iron 1 tab PO DAILY pantoprazole 40 mg PO QPM potassium chloride ER 20 mEq PO BID pravastatin 40 mg PO QPM walker Folding front wheeled walker HPI HPI 2WKPO: R AYSHA w/NE 12/08/24: Details: A 69-year-old female returns to the office today 2 weeks status post right total hip arthroplasty on 12/08/[address] Rodriguez. She continues to use a walker weightbearing as tolerated. She will transition to outpatient physical therapy in the next few days. She is taking Tylenol for her pain. [facility] Medical History (Updated 12/11/24 @ 00:02 by Background Darolan) Osteoarthritis of right hip Arthritis Back pain GERD (gastroesophageal reflux disease) Anxiety Depression Elevated cholesterol Murmur HTN (hypertension) Surgical History (Updated 12/11/24 @ 00:02 by Background Daemon) Hx of total hysterectomy Hx of tonsillectomy History of hand surgery H/O colonoscopy Social History (Updated 09/25/24 @ 11:25 by Sam Hansen) Household Members: Family Housing: House Are you a primary client care coordinator to a significant other at home: No Do you presently have visiting nurse or other home services: No Alcohol intake: never Patient Tobacco Use Status: Never used Tobacco service: No Current occupational status: retired Current occupation: right hand dominant Review of Systems Const All systems reviewed & are unremarkable except as noted in HPI and below Physical Exam Extrem Other: Right hip incision is clean dry and intact no erythema or drainage. She has good hip range of motion without pain and is able to flex without pain. Calf is supple and nontender neurovascularly intact. Assessment & Plan Assessment & Plan (1) Status post total replacement of right hip: Code(s): Z96.641 - Presence of right artificial hip joint Category: Surgical Plan: Denys removed today Steri-Strips applied the patient will continue with physical therapy to work on her gait training and strengthening and conditioning exercises. She will transition from a walker to a cane when she is ready. She will follow up in [address] Rodriguez, sooner if needed. Coding Level of Care Code Global (76109) Diagnoses Status post total replacement of right hip Z96.641
== END 2024-12-24 14:52 | disposition home or self-care (01) ==
LOC: HO.HOS 13:42
PROVIDERS: PCP Internal Medicine; Visit Provider Physician Assistant
DX: Z96.641 Presence of right artificial hip joint (principal)
CPT/HCPCS: 99024

== ENCOUNTER → 2024-12-24 13:41 | Outpatient (BNVA) | payer MEDICARE, OTHER, SELFPAY | PROVIDERS: PCP Internal Medicine; Visit Provider Physician Assistant | DX: Z47.1 Aftercare following joint replacement surgery (principal); Z96.641 Presence of right artificial hip joint | CPT/HCPCS: 99212 ==

== ENCOUNTER 2025-01-14 07:13 | Outpatient (REF) | payer MEDICARE, OTHER, SELFPAY ==
--- NOTE | ~2025-01-14 | XR_ITS ---
EXAMINATION: XR PELVIS 1-2 VIEWS, XR HIP 1 VIEW RIGHT HISTORY: M25.559 - Pain in unspecified hip COMPARISON: Comparison is made with the prior examination dated 12/08/2024. FINDINGS: A single AP view of the pelvis and an additional view of the right hip are submitted. The patient is again noted to be status post right total hip arthroplasty. The orthopedic elements are in anatomic alignment. There is no radiographic evidence of loosening. There is no fracture or dislocation. The left hip joint is maintained. Again seen are chronic changes of the pubic symphysis. XR/XR pelvis 1-2V IMPRESSION: Status post right total hip arthroplasty. Electronically signed by: Kyle Field MD 01/14/2025 01:34 PM EDT
--- NOTE | ~2025-01-14 | XR_ITS ---
EXAMINATION: XR PELVIS 1-2 VIEWS, XR HIP 1 VIEW RIGHT HISTORY: M25.559 - Pain in unspecified hip COMPARISON: Comparison is made with the prior examination dated 12/08/2024. FINDINGS: A single AP view of the pelvis and an additional view of the right hip are submitted. The patient is again noted to be status post right total hip arthroplasty. The orthopedic elements are in anatomic alignment. There is no radiographic evidence of loosening. There is no fracture or dislocation. The left hip joint is maintained. Again seen are chronic changes of the pubic symphysis. XR/XR hip RT 1V IMPRESSION: Status post right total hip arthroplasty. Electronically signed by: Kyle Field MD 01/14/2025 01:34 PM EDT
--- OUTSIDE RECORDS SUMMARY | 2025-01-14 07:15 | XMS_ITS | Patient Health Record ---
Author Organization [facility] Address [address] [place] [address] Care Team Providers Care Director Semiconductor Name Role Phone Jeffrey Penny MD Primary Care Provider Brody Agee Unavailable [phone] Allergies Allergen (clinical drug ingredient) Drug/Non Drug [...] A DAY Oral; Duration: 90 Active MegaRed [place]-3 Krill Oil 500 MG Orally Active Multi-Vitamin [...] Status Risk Notes Problem Acquired hallux valgus (29508798) Hallux valgus (acquired), left foot (M20.12) Active confirmed Problem Localized, primary osteoarthritis of the ankle and/or foot (654204013) Primary osteoarthrit is, right ankle and foot (M19.071) Active confirmed Problem Localized, primary osteoarthritis of the ankle and/or foot (506414672) Primary osteoarthrit is, left ankle and foot (M19.072) Active confirmed Problem Acquired hallux valgus (21662979) Hallux valgus (acquired), right foot (M20.11) Active [...] Insured Coverage Start Date Coverage End Date [facility] [address] [place] [address] [id number] Puja Desouza Self - patient is the insured [facility] Office of Community Care [address] [address] [place] [address] [phone] [id number] Sammy Desouza Sr Spouse - patient is the spouse of the insured Medical (General) History Medical History History ICD Code Arthritis Back,Hip,and Knee pain High blood pressure Reflux Measles Chicken pox Surgical History Surgery Date(Month/Year) tonsillectomy 1973 polypectomy 1981 hysterectomy 1996 finger surgery, reattached 1998
--- OUTSIDE RECORDS SUMMARY | 2025-01-14 07:15 | XMS_ITS | Clinical Summary ---
Author Organization [facility] Address [address] [facility] [address] [place] [address] Phone Care Team Providers Care Peoplesoft Analyst Name Role Phone Rosemarie Daigle MD Primary Care Provider [phone] Social History Tobacco Use Types Packs/Day Years Used Date Smoking Tobacco: Never Assessed Education Answer Date Recorded Are you interested in more education? Not on patrica e 10/12/2022 Are you concerned about learning? Not on file 10/12/2022 No 10/12/2022 No 10/12/2022 Digital Access Answer Date Recorded No 11/10/2022 No 11/10/2022 No 11/10/2022 Reliable internet access at home? Not on file 11/10/2022 Device with a working camera? Not on file Comments Unknown Sex and Gender Information Value Date Recorded Sex Assigned at Female 01/20/2024 5:54 PM EDT Legal Sex Female 10:36 PM EDT Gender Identity Female 01/20/2024 5:54 PM EDT Sexual Orientation Straight 01/20/2024 5: 54 PM EDT Plan of Treatment Upcoming Encounters Date Type Department Care Team (Late st Contact Info) Description 03/19/2025 1:30 PM EDT Office Visit [facility] Neurology [address] [place] [address] Jose C Garza MD [address] [place] [address] [email or web address] Health Maintenance Due Date Last Done Comments Adult Td,Tdap Booster 1954 LIPID PANEL 1954 DEPRESSION SCREENING 1966 SMOKING Hx and SMOKELESS TOB ACCO SCREENING 1967 HEPATITIS C SCREENING 01/05/1972 MAMMOGRAM 1994 COLOGUARD 1999 COLONOSCOPY 1999 COLORECTAL CANCER SCREENING 1999 FIT TEST 1999 FOBT 1999 SIGMOIDOSCOPY 1999 VIRTUAL COLONOSCOPY 1999 PNEUMOCOCCAL VACCINES (50+ y ears) (1 of 1 - PCV) 01/05/2004 ZOSTER VACCINES (1 of 2) 01/05/2004 OSTEOPOROSIS SCREENING INITI AL (ONE-TIME) 2019 COVID-19 VACCINE (1 - 2023-2 5 season) 2024 RSV VACCINE (1 - 1-dose 75+ series) 2029 HEPATITIS A VACCINES Aged Out No long er eligible based on patient's age to complete this topic HIB VACCINES Aged Out No longer eligi ble based on patient's age to complete this topic MENINGOCOCCAL VACCINES (ACWY) Aged Out No longer eligible based on patient's age to complete this topic MENINGOCOCCAL VACCINES (B) Aged Out N o longer eligible based on patient's age to complete this topic Medical Devices Not on file Insurance [place]ICARE PART A [place] [facility] [place]: [employer] [facility] [facility] [facility] ATTN: CLAIMS [address] [address] [place] [address] [place]ICARE PART A [place] [facility] [place]: [employer] [facility] [facility] ATTN: CLAIMS [address] [address] [place] [address] MEDICARE PART A & B Member Subscriber Plan / Payer (Ef fective 2018-Present) Name:Puja Desouza Member ID:[id number] Relation to Subscriber:Self Name:Puja Desouza Subscriber ID:[id number] Payer ID:[id number] Group ID:Not on file Type:Medicare Address: [place] [address] [place] [address] MEDICARE PART A & B Member Subscriber Plan / Payer (Ef fective 2018-Present) Name:Puja Desouza Member ID:[id number] Relation to Subscriber:Self Name:Puja Desouza Subscriber ID:[id number] Payer ID:[id number] Group ID:Not on file Type:Medicare Address: [place] [address] [place] [address] [place]ICARE PART A & [place] [facility] [place]: [facility] OFFICE OF COMMUNITY CARE ATTN:[facility] [address] [address] [place] [address] MEDICARE PART A & [place] [address] Care Teams Peoplesoft Analyst Relationship Specialty Start Date End Date Rosemarie Daigle MD [address] [place] [address] [email or web address] PCP - General Internal Medicine 01/21/24 Additional Source Comments The information contained in this document represents components of the legal health record. It is not the complete legal health record.[facility]
--- OUTSIDE RECORDS SUMMARY | 2025-01-14 07:15 | XMS_ITS ---
Author Name [facility] Unknown History of Medication Use Medication Directions Dispensed Refills Start Date End Date Stat us prednisone 20 mg tablet TAKE 1 TABLET BY MOUTH TWICE A DAY FOR 7 DAYS 07/31/2024 completed clobetasol 0.05 % scalp solution APPLY TO THE AFFECTED SCALP AREA BY TOPICAL ROUTE 2 TIMES PER DAY IN THE MORNING AND EVENING active escitalopram 10 mg tablet Take 1 tablet every day by oral route. active fluticasone propionate 50 mcg/actuation nasal spray,suspension [place] 1 spray every day by intranasal route. active furosemide 20 mg tablet Take 1 tablet every day by oral route. active lisinopril 20 mg-hydrochlorothiaz jacinto 12.5 mg tablet Take 1 tablet every day by oral route. active lorazepam 0.5 mg tablet Take 2 tablets 3 times a day by oral route. active pantoprazole 40 mg tablet,delayed release Take 1 tablet every day by oral route. active potassium chloride ER 20 mEq tablet,extended release Take 1 tablet every day by oral route. active pravastatin 40 mg tablet Take 1 tablet every day by oral route. active Allergies Allergen Reaction Severity Comment Documented Date Source Statu s CEPHALEXIN ENS_AONECT KEFLEX ENS_AONECT PENICILLINS ENS_AONECT SULFA (SULFONAMIDE ANTIBIOTICS) ENS_AONECT Problems Problem Status Onset Date Problem Type Date of Resoluti on Source Osteoarthritis of right hip joint active 2024-07-31 ProblemAct ENS_AONECT Encounters Encounter Type Encounter Reason Primary Diagnosis Location Date Ambulatory [facility] [place] 09/09/2024 Ambulatory [facility] [place] 08/03/2024 Ambulatory [facility] [place] 07/31/2024 Ambulatory [facility] [place] 07/31/2024 Ambulatory [facility] [place] 07/31/2024 Ambulatory [facility] [place] 07/31/2024 Ambulatory [facility] [place] 07/20/2024 Ambulatory [facility] [place] 07/20/2024 Ambulatory [facility] [place] 07/20/2024
== END 2025-01-14 07:14 | disposition home or self-care (01) ==
LOC: HO.HOSX 07:13
PROVIDERS: Visit Provider Orthopaedic Surgery
DX: Z47.1 Aftercare following joint replacement surgery (principal); Z96.641 Presence of right artificial hip joint; M25.551 Pain in right hip; R26.89 Other abnormalities of gait and mobility
CPT/HCPCS: 72170; 73501; 99212

== ENCOUNTER 2025-01-14 13:09 | Outpatient (AMB) | payer MEDICARE, OTHER, SELFPAY ==
--- NOTE | 2025-01-14 13:21 | A.OFFVIS_ITS ---
Intake Visit Reasons: 6WKPO: R AYSHA w/NE 12/08/24 Intake Note: Puja is a 69 year old female who presents today for a 6 week post operative appointment s/p R AYSHA NE 12/08/24. Patient reports that she is doing well, continues to utilize walker for ambulation Allergies cephalexin Allergy (Intermediate, Verified 01/14/25 13:22) Swelling Penicillins Allergy (Verified 01/14/25 13:22) Swelling Sulfa (Sulfonamide Antibiotics) Allergy (Verified 01/14/25 13:22) Swelling HPI HPI 6WKPO: R AYSHA w/NE 12/08/24: Details: Puja is a 69 year old female who presents today for a 6 week post operative appointment s/p R AYSHA NE 12/08/24. Patient reports that she is doing well, continues to utilize walker for ambulation. She feels well. She has no complaints. COUNTS INCLUDE 234 BEDS AT THE [facility] Medical History (Updated 12/11/24 @ 00:02 by Background Daemon) Osteoarthritis of right hip Arthritis Back pain GERD (gastroesophageal reflux disease) Anxiety Depression Elevated cholesterol Murmur HTN (hypertension) Surgical History (Updated 12/11/24 @ 00:02 by Background Daemon) Hx of total hysterectomy Hx of tonsillectomy History of hand surgery H/O colonoscopy Social History (Updated 09/25/24 @ 11:25 by Sam Hansen) Household Members: Family Housing: House Are you a primary physician assistant primary care to a significant other at home: No Do you presently have visiting nurse or other home services: No Alcohol intake: never Patient Tobacco Use Status: Never used Tobacco service: No Current occupational status: retired Current occupation: right hand dominant Physical Exam Extrem Other: Incision clean dry and intact. Mild Trendelenburg gait. No hip pain with range of motion. Neurovascularly intact bilateral lower extremities. Results Reviewed Results Reviewed: I personally reviewed relevant radiographs. Right AYSHA in expected post operative position with no hardware complications or evidence of loosening Assessment & Plan Assessment & Plan (1) Status post total replacement of right hip: Code(s): Z96.641 - Presence of right artificial hip joint Category: Surgical Plan: Status post right hip replacement doing well. May DC aspirin. No driving for 8 weeks. Dental prophylaxis discussed. Follow up 6 weeks. Orders: Orders XR hip RT 1V Today M25.559 - Pain in unspecified hip XR pelvis 1-2V Today M25.559 - Pain in unspecified hip Coding Level of Care Code Global (44203) Diagnoses Status post total replacement of right hip Z96.641
== END 2025-01-14 13:37 | disposition home or self-care (01) ==
LOC: HO.HOS 13:09
PROVIDERS: PCP Internal Medicine; Visit Provider Orthopaedic Surgery
DX: Z96.641 Presence of right artificial hip joint (principal)
CPT/HCPCS: 99024

== ENCOUNTER → 2025-01-14 13:12 | Outpatient (BNV) | payer MEDICARE, OTHER, SELFPAY | PROVIDERS: Visit Provider Radiology Diagnostic Radiology | DX: M25.551 Pain in right hip (principal); Z47.1 Aftercare following joint replacement surgery | CPT/HCPCS: 72170; 73501 ==

== ENCOUNTER 2025-03-01 10:17 | Outpatient (AMB) | payer MEDICARE, OTHER, SELFPAY ==
--- NOTE | 2025-03-01 10:20 | MHC.OFFVIS ---
Vital Signs 03/01/25 10:22 Height 5 ft Weight 175 lb BMI 34.2 Intake Visit Reasons: PO: R AYSHA w/NE 12/08/24-6WK Intake Note: Puja is a 70 year old female who presents today for a post operative appointment about 11 weeks s/p Right AYSHA 12/08/24. Patient reports that she is doing well with no current concerns. Allergies cephalexin Allergy (Intermediate, Verified 01/14/25 13:22) Swelling Penicillins Allergy (Verified 01/14/25 13:22) Swelling Sulfa (Sulfonamide Antibiotics) Allergy (Verified 01/14/25 13:22) Swelling HPI HPI PO: R AYSHA w/NE 12/08/24-6WK: Details: Puja is a 70 year old female who presents today for a post operative appointment about 11 weeks s/p Right AYSHA 12/08/24. Patient reports that she is doing well with no current concerns. PFSH Medical History (Updated 12/11/24 @ 00:02 by Background Daemon) Osteoarthritis of right hip Arthritis Back pain GERD (gastroesophageal reflux disease) Anxiety Depression Elevated cholesterol Murmur HTN (hypertension) Surgical History (Updated 12/11/24 @ 00:02 by Background Daemon) Hx of total hysterectomy Hx of tonsillectomy History of hand surgery H/O colonoscopy Social History (Updated 09/25/24 @ 11:25 by Sam Hansen) Household Members: Family Housing: House Are you a primary pet care technician to a significant other at home: No Do you presently have visiting nurse or other home services: No Alcohol intake: never Patient Tobacco Use Status: Never used Tobacco service: No Current occupational status: retired Current occupation: right hand dominant Physical Exam Vital Signs: BMI result Body Mass Index 34.2 Extrem Other: No pain with hip range of motion. 2+ dorsalis pedis pulse Incision clean dry and intact Assessment & Plan Assessment & Plan (1) Status post total replacement of right hip: Code(s): Z96.641 - Presence of right artificial hip joint Category: Surgical Plan: Status post right hip replacement doing very well. May follow up in 9 months. Discussed dental prophylaxis. Coding Level of Care Code Global (81801) Diagnoses Status post total replacement of right hip Z96.641
[2025-03-01 10:22] VITALS: BMI 34.2
--- OUTSIDE RECORDS SUMMARY | 2025-03-01 13:02 | XMS_ITS | Patient Health Record ---
[facility] Address [address] [place] [address] Care Team Providers Care Ticket Counter Name Role Phone Jeffrey Penny MD Primary Care Provider Brody Agee Unavailable [phone] Allergies Allergen (clinical drug ingredient) Drug/Non Drug [...] A DAY Oral; Duration: 90 Active MegaRed [place]-3 Krill Oil 500 MG Orally Active Multi-Vitamin [...] Status Risk Notes Problem Acquired hallux valgus (41609525) Hallux valgus (acquired), left foot (M20.12) Active confirmed Problem Localized, primary osteoarthritis of the ankle and/or foot (069225420) Primary osteoarthrit is, right ankle and foot (M19.071) Active confirmed Problem Localized, primary osteoarthritis of the ankle and/or foot (844235851) Primary osteoarthrit is, left ankle and foot (M19.072) Active confirmed Problem Acquired hallux valgus (82388423) Hallux valgus (acquired), right foot (M20.11) Active [...] Insured Coverage Start Date Coverage End Date [facility] [address] [place] [address] [id number] Puja Desouza Self - patient is the insured [facility] Office of Community Care [address] [address] [place] [address] [id number] Sammy Desouza Sr Spouse - patient is the spouse of the insured Medical (General) History Medical History History ICD Code Arthritis Back,Hip,and Knee pain High blood pressure Reflux Measles Chicken pox Surgical History Surgery Date(Month/Year) tonsillectomy 1973 polypectomy 1981 hysterectomy 1996 finger surgery, reattached 1998
== END 2025-03-01 11:21 | disposition home or self-care (01) ==
LOC: HO.HOS 10:17
PROVIDERS: Visit Provider Orthopaedic Surgery
DX: Z96.641 Presence of right artificial hip joint (principal)
CPT/HCPCS: 99024

== ENCOUNTER → 2025-03-01 10:17 | Outpatient (BNVA) | payer MEDICARE, OTHER, SELFPAY | PROVIDERS: Visit Provider Orthopaedic Surgery | DX: Z47.1 Aftercare following joint replacement surgery (principal); Z96.641 Presence of right artificial hip joint | CPT/HCPCS: 99212 ==